=== PATIENT | male | born 1940 | race Asian ===

== ENCOUNTER → 2016-09-03 | Outpatient (CLI) | payer MEDICARE, OTHER ==
[~2016-09-03] MED LIST: ALLO100T PO; ATOR10TA84 PO; BACL10TA PO; DOCU250C91 PO; FENO48TA15 PO; FLUT1AER PO; FURO40 PO; INSLAN SQ; INSNOV SQ; ISOS1TAB2 PO; METO25 PO; RIVA15T PO; TAMS0.4C32 PO; TIOT185 IH; VITAD1000 PO; WARF3TAB29 PO
[2016-09-03 18:48] LABS: CALCIUM, TOTAL 8.8 mg/dL (8.8-10.5); CREATININE 1.96 mg/dL (0.60-1.30); POTASSIUM 4.1 mmol/L (3.5-5.1)
== END | disposition home or self-care (01) ==
LOC: LABPV 15:05
PROVIDERS: ATTEND Internal Medicine Nephrology
DX: I12.9 Hypertensive chronic kidney disease with stage 1 through stage 4 chronic kidney disease, or unspecified chronic kidney disease (principal); N18.3 Chronic kidney disease, stage 3 (moderate); E11.29 Type 2 diabetes mellitus with other diabetic kidney complication; I25.10 Atherosclerotic heart disease of native coronary artery without angina pectoris; D64.9 Anemia, unspecified; I50.9 Heart failure, unspecified; E78.5 Hyperlipidemia, unspecified; I42.8 Other cardiomyopathies
CPT/HCPCS: 84156

== ENCOUNTER → 2016-09-07 | Outpatient (CLI) | payer MEDICARE, OTHER | END | disposition home or self-care (01) | LOC: RADPV 13:12 | PROVIDERS: ATTEND Podiatrist Foot & Ankle Surgery | DX: I73.9 Peripheral vascular disease, unspecified (principal); L97.412 Non-pressure chronic ulcer of right heel and midfoot with fat layer exposed; I70.201 Unspecified atherosclerosis of native arteries of extremities, right leg | CPT/HCPCS: 93925 ==

== ENCOUNTER → 2016-12-12 | Outpatient (CLI) | payer MEDICARE, OTHER ==
[2016-12-12 10:49] LABS: BASOPHILS # (AUTO) 0.04 K/uL (0.00-0.20); BASOPHILS % (AUTO) 0.6 % (0.0-2.0); EOSINOPHILS # (AUTO) 0.57 K/uL (0.00-0.70); EOSINOPHILS % (AUTO) 7.48 % (1.0-6.0); HEMATOCRIT 40.8 % (41-53); HEMOGLOBIN 13.4 g/dL (13.5-17.5); LYMPHOCYTES # (AUTO) 1.4 K/uL (1.0-4.8); LYMPHOCYTES % (AUTO) 18.2 % (22.0-44.0); MEAN CORPUSCULAR HGB CONC 32.7 G/dL (31.0-37.0); MEAN CORPUSCULAR VOLUME 98 fL (80-100); MONOCYTES # (AUTO) 0.6 K/uL (0.1-1.0); MONOCYTES % (AUTO) 7.8 % (2.0-9.0); NEUTROPHILS # (AUTO) 5.1 K/uL (1.8-7.7); NEUTROPHILS % (AUTO) 65.9 % (40.0-70.0); PLATELET COUNT (AUTO) 181 K/uL (150-450); RED BLOOD CELL COUNT(AUTO) 4.17 MIL/uL (4.50-5.90); RED CELL DISTRIBUTION WIDTH 15.4 % (11.5-14.5); WHITE BLOOD COUNT (AUTO) 7.7 K/uL (4.5-11.0)
[2016-12-12 11:08] LABS: ALBUMIN 3.3 g/dL (3.4-5.0); BILIRUBIN,TOTAL 0.4 mg/dL (0.1-1.0); CALCIUM, TOTAL 8.7 mg/dL (8.8-10.5); CHOL/HDL RATIO 2.8 (4.2-7.3); CREATININE 1.91 mg/dL (0.60-1.30); HEMOGLOBIN A1C 7.9 % (4.5-6.2); PHOSPHORUS 4.5 mg/dL (2.5-4.9); POTASSIUM 3.7 mmol/L (3.5-5.1); TOTAL PROTEIN, SERUM 7.4 g/dL (6.4-8.2)
[2016-12-12 11:09] LABS: THYROID STIMULATING HORMONE 4.04 uIU/mL (0.36-3.74)
== END | disposition home or self-care (01) ==
LOC: LABPV 07:26
PROVIDERS: ATTEND Internal Medicine Cardiovascular Disease
DX: I11.0 Hypertensive heart disease with heart failure (principal); I50.9 Heart failure, unspecified; E11.8 Type 2 diabetes mellitus with unspecified complications; E55.9 Vitamin D deficiency, unspecified
CPT/HCPCS: 82306; 82570; 83036; 83735; 83970; 84100; 84156; 84439; 84443

== ENCOUNTER → 2017-02-14 | Outpatient (CLI) | payer MEDICARE, OTHER ==
[~2017-02-14] MED LIST changes: +AMIO200T2 PO; +AZIT500T PO; +METO-325 PO; -METO25 PO; +POTA-9 PO; -WARF3TAB29 PO
[2017-02-14 12:01] LABS: BASOPHILS % (AUTO) 0.4 % (0.0-2.0); EOSINOPHILS % (AUTO) 3.5 % (1.0-6.0); HEMATOCRIT 37.2 % (41-53); HEMOGLOBIN 12.6 g/dL (13.5-17.5); LYMPHOCYTES # (AUTO) 1.1 K/uL (1.0-4.8); LYMPHOCYTES % (AUTO) 14.7 % (22.0-44.0); MEAN CORPUSCULAR HEMOGLOBIN 33.3 pg (26.0-34.0); MEAN CORPUSCULAR HGB CONC 33.8 G/dL (31.0-37.0); MEAN CORPUSCULAR VOLUME 99 fL (80-100); MONOCYTES # (AUTO) 0.5 K/uL (0.1-1.0); MONOCYTES % (AUTO) 7.1 % (2.0-9.0); NEUTROPHILS # (AUTO) 5.5 K/uL (1.8-7.7); NEUTROPHILS % (AUTO) 74.3 % (40.0-70.0); PLATELET COUNT (AUTO) 272 K/uL (150-450); RED BLOOD CELL COUNT(AUTO) 3.77 MIL/uL (4.50-5.90); RED CELL DISTRIBUTION WIDTH 15.6 % (11.5-14.5); WHITE BLOOD COUNT (AUTO) 7.4 K/uL (4.5-11.0)
[2017-02-14 12:06] LABS: HEMOGLOBIN A1C 7.7 % (4.5-6.2)
[2017-02-14 12:39] LABS: ALBUMIN 2.5 g/dL (3.4-5.0); BILIRUBIN,TOTAL 0.3 mg/dL (0.1-1.0); CALCIUM, TOTAL 8.4 mg/dL (8.8-10.5); CHOL/HDL RATIO 2.7 (4.2-7.3); CREATININE 2.26 mg/dL (0.60-1.30); MAGNESIUM 2.1 mg/dL (1.80-2.40); POTASSIUM 4.6 mmol/L (3.5-5.1); THYROID STIMULATING HORMONE 5.01 uIU/mL (0.36-3.74); TOTAL PROTEIN, SERUM 6.6 g/dL (6.4-8.2)
== END | disposition home or self-care (01) ==
LOC: LABPV 10:09
PROVIDERS: ATTEND Internal Medicine Cardiovascular Disease
DX: I11.0 Hypertensive heart disease with heart failure (principal); I50.9 Heart failure, unspecified; E11.8 Type 2 diabetes mellitus with unspecified complications; E55.9 Vitamin D deficiency, unspecified
CPT/HCPCS: 82306; 83036; 83735; 84439; 84443

== ENCOUNTER → 2017-03-19 | Outpatient (CLI) | payer MEDICARE, OTHER ==
[~2017-03-19] MED LIST changes: +CARV12 PO; +CILO100T PO; +CLOP75 PO; +GABA-529 PO; -METO-325 PO; +METO-558 PO; +VALS80TA2 PO
[2017-03-19 10:47] LABS: BASOPHILS % (AUTO) 0.5 % (0.0-2.0); EOSINOPHILS % (AUTO) 3.7 % (1.0-6.0); HEMATOCRIT 40.7 % (41-53); HEMOGLOBIN 13.8 g/dL (13.5-17.5); LYMPHOCYTES # (AUTO) 1.1 K/uL (1.0-4.8); MEAN CORPUSCULAR HEMOGLOBIN 33.4 pg (26.0-34.0); MEAN CORPUSCULAR HGB CONC 33.8 G/dL (31.0-37.0); MEAN CORPUSCULAR VOLUME 99 fL (80-100); MONOCYTES # (AUTO) 0.5 K/uL (0.1-1.0); MONOCYTES % (AUTO) 7.6 % (2.0-9.0); NEUTROPHILS # (AUTO) 4.9 K/uL (1.8-7.7); NEUTROPHILS % (AUTO) 72.2 % (40.0-70.0); PLATELET COUNT (AUTO) 148 K/uL (150-450); RED BLOOD CELL COUNT(AUTO) 4.11 MIL/uL (4.50-5.90); RED CELL DISTRIBUTION WIDTH 15.8 % (11.5-14.5); WHITE BLOOD COUNT (AUTO) 6.7 K/uL (4.5-11.0)
[2017-03-19 11:17] LABS: ALBUMIN 3.8 g/dL (3.4-5.0); BILIRUBIN,TOTAL 0.6 mg/dL (0.1-1.0); CALCIUM, TOTAL 9.2 mg/dL (8.8-10.5); CHOL/HDL RATIO 2.5 (4.2-7.3); CREATININE 2.26 mg/dL (0.60-1.30); MAGNESIUM 2.3 mg/dL (1.80-2.40); POTASSIUM 4.4 mmol/L (3.5-5.1); THYROID STIMULATING HORMONE 10.59 uIU/mL (0.36-3.74); TOTAL PROTEIN, SERUM 7.6 g/dL (6.4-8.2)
[2017-03-19 11:31] LABS: HEMOGLOBIN A1C 8.8 % (4.5-6.2)
== END | disposition home or self-care (01) ==
LOC: LABPV 08:01
PROVIDERS: ATTEND Internal Medicine Cardiovascular Disease
DX: I11.0 Hypertensive heart disease with heart failure (principal); I50.9 Heart failure, unspecified; E11.8 Type 2 diabetes mellitus with unspecified complications; E55.9 Vitamin D deficiency, unspecified
CPT/HCPCS: 82306; 82570; 83036; 83735; 84156; 84439; 84443

== ENCOUNTER → 2017-04-17 | Outpatient (CLI) | payer MEDICARE, OTHER ==
[2017-04-17 10:39] LABS: CALCIUM, TOTAL 8.8 mg/dL (8.8-10.5); POTASSIUM 4.8 mmol/L (3.5-5.1)
== END | disposition home or self-care (01) ==
LOC: LABPV 07:59
PROVIDERS: ATTEND Internal Medicine Cardiovascular Disease
DX: I11.0 Hypertensive heart disease with heart failure (principal); I50.9 Heart failure, unspecified; E11.65 Type 2 diabetes mellitus with hyperglycemia; E55.9 Vitamin D deficiency, unspecified

== ENCOUNTER → 2017-05-14 | Outpatient (CLI) | payer MEDICARE, OTHER ==
[2017-05-14 14:47] LABS: CALCIUM, TOTAL 8.9 mg/dL (8.8-10.5); CREATININE 2.04 mg/dL (0.60-1.30); POTASSIUM 4.1 mmol/L (3.5-5.1); THYROID STIMULATING HORMONE 6.03 uIU/mL (0.36-3.74)
== END | disposition home or self-care (01) ==
LOC: LABPV 12:53
PROVIDERS: ATTEND Internal Medicine Nephrology
DX: I13.0 Hypertensive heart and chronic kidney disease with heart failure and stage 1 through stage 4 chronic kidney disease, or unspecified chronic kidney disease (principal); E11.22 Type 2 diabetes mellitus with diabetic chronic kidney disease; N18.9 Chronic kidney disease, unspecified; I50.9 Heart failure, unspecified; E11.29 Type 2 diabetes mellitus with other diabetic kidney complication; E55.9 Vitamin D deficiency, unspecified
CPT/HCPCS: 84443; 84480

== ENCOUNTER 2017-05-30 03:35 | Inpatient (IN) | payer MEDICARE, OTHER ==
[~2017-05-30] VITALS: Ht 167.6 cm; Wt 87.6 kg
[~2017-05-30 03:35] MED LIST changes: -CARV12 PO; -CILO100T PO; -CLOP75 PO; -GABA-529 PO; -VALS80TA2 PO
[2017-05-30] MEDS ORDERED: CARV12 PO (03:45)
[2017-05-30] MEDS ORDERED: VALS80TA2 PO (03:45)
[2017-05-30] MEDS ORDERED: GABA-529 PO (03:45)
[2017-05-30] MEDS ORDERED: CILO100T PO (03:45)
[2017-05-30] MEDS ORDERED: CLOP75 PO (03:45)
[2017-05-30] MEDS ORDERED: IPRATROPIUM BROMIDE 0.5 MG/2.5 ML NEB SOLUTION NEB ONE ×2 (03:45→05:00)
[2017-05-30] MEDS ORDERED: ALBUTEROL SULFATE 5 MG/ML 20 ML NEB SOLN [BULK] NEB ONE ×2 (03:45→05:00)
[2017-05-30] MEDS ORDERED: MethylPREDNISolone SOD SUCC 125 MG/2 ML VIAL IVP ONE ×2 (03:45→05:00)
[2017-05-30] MEDS ORDERED: 0.9% SODIUM CHLORIDE 5 ML NEB SOLUTION NEB ONE ×2 (03:46→04:56)
[2017-05-30 03:57] LABS: GLUCOSE,POINT OF CARE 118 MG/DL (70-110)
[2017-05-30 04:20] LABS: BASOPHILS % (AUTO) 0.1 % (0.0-2.0); EOSINOPHILS % (AUTO) 1.7 % (1.0-6.0); HEMATOCRIT 37.8 % (41-53); HEMOGLOBIN 12.9 g/dL (13.5-17.5); LYMPHOCYTES # (AUTO) 1.2 K/uL (1.0-4.8); LYMPHOCYTES % (AUTO) 11.4 % (22.0-44.0); MEAN CORPUSCULAR HEMOGLOBIN 34.1 pg (26.0-34.0); MEAN CORPUSCULAR HGB CONC 34.1 G/dL (31.0-37.0); MEAN CORPUSCULAR VOLUME 100 fL (80-100); MONOCYTES # (AUTO) 0.6 K/uL (0.1-1.0); MONOCYTES % (AUTO) 5.4 % (2.0-9.0); NEUTROPHILS # (AUTO) 8.6 K/uL (1.8-7.7); NEUTROPHILS % (AUTO) 81.4 % (40.0-70.0); PLATELET COUNT (AUTO) 178 K/uL (150-450); RED BLOOD CELL COUNT(AUTO) 3.78 MIL/uL (4.50-5.90); RED CELL DISTRIBUTION WIDTH 15.3 % (11.5-14.5); WHITE BLOOD COUNT (AUTO) 10.5 K/uL (4.5-11.0)
[2017-05-30 04:27] LABS: CALCIUM, TOTAL 8.6 mg/dL (8.8-10.5); CREATININE 2.15 mg/dL (0.60-1.30); POTASSIUM 4.2 mmol/L (3.5-5.1)
[2017-05-30 04:32] LABS: ALBUMIN 3.2 g/dL (3.4-5.0); BILIRUBIN,TOTAL 0.5 mg/dL (0.1-1.0); TOTAL PROTEIN, SERUM 7.3 g/dL (6.4-8.2)
[2017-05-30 04:58] LABS: GLUCOSE,POINT OF CARE 111 MG/DL (70-110)
[2017-05-30] MEDS ORDERED: ACETAMINOPHEN 325 MG TABLET PO PRN ×2 (05:45→09:00)
[2017-05-30] MEDS ORDERED: 0.9% SODIUM CHLORIDE 10 ML SYRINGE IVP PRN ×2 (05:45→09:00)
[2017-05-30] MEDS ORDERED: CefTRIAXone 1 GM/DEXTROSE 50 ML IV ONE (05:45)
[2017-05-30] MEDS ORDERED: ONDANSETRON HCL 4 MG/2 ML VIAL IVP PRN ×2 (05:45→09:00)
[2017-05-30 05:57] LABS: GLUCOSE COMMENT 1 Doctor Notified; GLUCOSE,POINT OF CARE 135 MG/DL (70-110)
[2017-05-30 06:26] LABS: INFLUENZA TYPE B NEGATIVE FOR TYPE B (NEGATIVE)
[2017-05-30 07:27] LABS: GLUCOSE COMMENT 1 Doctor Notified; GLUCOSE,POINT OF CARE 144 MG/DL (70-110)
[2017-05-30 08:34] VITALS: BP 119/68
[2017-05-30] MEDS ORDERED: INSULIN ASPART 100 UNITS/ML SQ SCH ×2 (09:00→12:00)
[2017-05-30] MEDS ORDERED: BISACODYL 10 MG RECTAL RECTAL SUPPOSITORY PR PRN (09:00)
[2017-05-30] MEDS ORDERED: IPRATROPIUM BROMIDE 0.5 MG/2.5 ML NEB SOLUTION NEB PRN (09:00)
[2017-05-30] MEDS ORDERED: ZOLPIDEM TARTRATE 5 MG TABLET PO PRN (09:00)
[2017-05-30] MEDS ORDERED: HYDROCODONE/ACETAMINOPHEN 5-325 MG TABLET PO PRN (09:00)
[2017-05-30] MEDS ORDERED: AMIODARONE HCL 200 MG TABLET PO SCH (09:00)
[2017-05-30] MEDS ORDERED: DOCUSATE SODIUM 250 MG CAPSULE PO SCH (09:00)
[2017-05-30] MEDS ORDERED: ALBUTEROL SULFATE 2.5 MG/0.5 ML NEB SOLUTION NEB PRN (09:00)
[2017-05-30] MEDS ORDERED: *CLINICAL-RX DOSING [ENTER DRUG IN COMMENTS] CLINICAL ONE (09:30)
[2017-05-30] MEDS ORDERED: BACLOFEN 10 MG TABLET PO SCH (10:00)
[2017-05-30] MEDS ORDERED: INSULIN GLARGINE,HUM.REC.ANLOG 100 UNITS/ML SQ SCH ×2 (10:00→21:00)
[2017-05-30] MEDS ORDERED: FUROSEMIDE 40 MG TABLET PO SCH (10:00)
[2017-05-30] MEDS ORDERED: DEXTROSE 50%-WATER 25 GM/50 ML SYRINGE IVP PRN (10:30)
[2017-05-30] MEDS: DOCUSATE SODIUM 250 MG CAPSULE PO SCH ×2 (10:33→20:28)
[2017-05-30] MEDS: CHOLECALCIFEROL (VIT D3) 1,000 UNITS TABLET PO SCH (10:33)
[2017-05-30] MEDS: CARVEDILOL 12.5 MG TABLET PO SCH ×2 (10:34→20:28)
[2017-05-30] MEDS: PANTOPRAZOLE SODIUM 40 MG DR TABLET PO SCH (10:34)
[2017-05-30] MEDS: GABAPENTIN 100 MG CAPSULE PO SCH ×2 (10:35→20:28)
[2017-05-30] MEDS: POTASSIUM CHLORIDE 10 MEQ ER TABLET PO SCH (10:36)
[2017-05-30] MEDS: TIOTROPIUM BROMIDE 18 MCG/INH HANDIHALER [5] IH SCH (10:36)
[2017-05-30] MEDS: ALLOPURINOL 100 MG TABLET PO SCH (10:36)
[2017-05-30] MEDS: VALSARTAN 80 MG TABLET PO SCH ×2 (10:36→21:32)
[2017-05-30] MEDS: FLUTICASONE/VILANTEROL 100-25 MCG/INH INHALER [14] IH SCH (10:37)
[2017-05-30] MEDS: INSULIN ASPART 100 UNITS/ML SQ PRN ×2 (11:33→21:33)
[2017-05-30 11:44] VITALS: BP 149/75
[2017-05-30] MEDS ORDERED: INSNOV SQ (13:44)
[2017-05-30 15:37] VITALS: BP 127/70
[2017-05-30] MEDS ORDERED: BACLOFEN 10 MG TABLET PO PRN (17:00)
[2017-05-30] MEDS: MethylPREDNISolone SOD SUCC 125 MG/2 ML VIAL IVP SCH ×2 (17:08→23:45)
[2017-05-30] MEDS: CILOSTAZOL 100 MG TABLET PO SCH (17:10)
[2017-05-30] MEDS: INSULIN ASPART 100 UNITS/ML SQ SCH (17:11)
[2017-05-30] MEDS ORDERED: RIVAROXABAN 15 MG TABLET PO SCH (18:00)
[2017-05-30 19:32] VITALS: BP 117/64
[2017-05-30] MEDS: FUROSEMIDE 40 MG TABLET PO SCH (20:28)
[2017-05-30] MEDS ORDERED: TAMSULOSIN HCL 0.4 MG CAPSULE PO SCH (21:00)
[2017-05-30] MEDS ORDERED: ATORVASTATIN CALCIUM 20 MG TABLET PO SCH (21:00)
[2017-05-31 00:15] VITALS: BP 133/83
[2017-05-31 05:00] VITALS: BP 140/78
[2017-05-31 05:28] LABS: GLUCOSE COMMENT 1 Received Meds; GLUCOSE,POINT OF CARE 245 MG/DL (70-110)
[2017-05-31] MEDS: PANTOPRAZOLE SODIUM 40 MG DR TABLET PO SCH (06:48)
[2017-05-31] MEDS: CILOSTAZOL 100 MG TABLET PO SCH (06:48)
[2017-05-31] MEDS: INSULIN ASPART 100 UNITS/ML SQ SCH ×2 (06:49→12:31)
[2017-05-31] MEDS: INSULIN ASPART 100 UNITS/ML SQ PRN (06:50)
[2017-05-31 07:41] VITALS: BP 140/79
[2017-05-31] MEDS: MethylPREDNISolone SOD SUCC 125 MG/2 ML VIAL IVP SCH (08:27)
[2017-05-31] MEDS: CARVEDILOL 12.5 MG TABLET PO SCH (08:28)
[2017-05-31] MEDS: CHOLECALCIFEROL (VIT D3) 1,000 UNITS TABLET PO SCH (08:28)
[2017-05-31] MEDS: FUROSEMIDE 40 MG TABLET PO SCH (08:28)
[2017-05-31] MEDS: DOCUSATE SODIUM 250 MG CAPSULE PO SCH (08:28)
[2017-05-31] MEDS: TIOTROPIUM BROMIDE 18 MCG/INH HANDIHALER [5] IH SCH (08:29)
[2017-05-31] MEDS: FLUTICASONE/VILANTEROL 100-25 MCG/INH INHALER [14] IH SCH (08:30)
[2017-05-31] MEDS: GABAPENTIN 100 MG CAPSULE PO SCH (08:33)
[2017-05-31] MEDS: POTASSIUM CHLORIDE 10 MEQ ER TABLET PO SCH (08:33)
[2017-05-31] MEDS: ALLOPURINOL 100 MG TABLET PO SCH (08:34)
[2017-05-31] MEDS: VALSARTAN 80 MG TABLET PO SCH (08:35)
[2017-05-31] MEDS ORDERED: CefTRIAXone 1 GM/DEXTROSE 50 ML IV SCH (09:00)
[2017-05-31] MEDS ORDERED: TERBINAFINE HCL 1% 30 GM CREAM TP SCH (09:00)
[2017-05-31] MEDS ORDERED: GENTIAN VIOLET TP SCH (09:00)
[2017-05-31] MEDS ORDERED: AMIODARONE HCL 200 MG TABLET PO SCH (09:00)
[2017-05-31 09:10] LABS: EOSINOPHILS % (AUTO) 0 % (1.0-6.0); HEMATOCRIT 35.3 % (41-53); HEMOGLOBIN 12.3 g/dL (13.5-17.5); LYMPHOCYTES # (AUTO) 0.6 K/uL (1.0-4.8); LYMPHOCYTES % (AUTO) 4.7 % (22.0-44.0); MEAN CORPUSCULAR HEMOGLOBIN 34.4 pg (26.0-34.0); MEAN CORPUSCULAR HGB CONC 34.9 G/dL (31.0-37.0); MEAN CORPUSCULAR VOLUME 99 fL (80-100); MONOCYTES # (AUTO) 0.4 K/uL (0.1-1.0); MONOCYTES % (AUTO) 3.6 % (2.0-9.0); NEUTROPHILS # (AUTO) 10.9 K/uL (1.8-7.7); PLATELET COUNT (AUTO) 197 K/uL (150-450); RED BLOOD CELL COUNT(AUTO) 3.57 MIL/uL (4.50-5.90); WHITE BLOOD COUNT (AUTO) 11.8 K/uL (4.5-11.0)
[2017-05-31 09:11] LABS: NEUTROPHILS % (AUTO) 91.7 % (40.0-70.0)
[2017-05-31 09:22] LABS: INR 1.2 (0.9-1.1); PROTHROMBIN TIME 12.8 SEC (9.4-11.6)
[2017-05-31 09:39] LABS: CHOL/HDL RATIO 2.6 (4.2-7.3); THYROID STIMULATING HORMONE 3.87 uIU/mL (0.36-3.74)
[2017-05-31 09:40] LABS: HEMOGLOBIN A1C 7.8 % (4.5-6.2)
[2017-05-31 11:52] VITALS: BP 131/58
[2017-05-31 11:59] LABS: GLUCOSE,POINT OF CARE 285 MG/DL (70-110)
[2017-05-31 11:59] LABS: GLUCOSE COMMENT 1 Received Meds; GLUCOSE,POINT OF CARE 232 MG/DL (70-110)
[2017-05-31 12:27] LABS: GLUCOSE COMMENT 1 Received Meds; GLUCOSE,POINT OF CARE 263 MG/DL (70-110)
[2017-05-31 19:47] LABS: GLUCOSE,POINT OF CARE 214 MG/DL (70-110)
[2017-06-01] MEDS ORDERED: GENTIAN VIOLET TP SCH (09:00)
== END 2017-05-31 13:05 | disposition home or self-care (01) | DRG 292 ==
LOC: EMS 03:38 → 5S 05:38
PROVIDERS: ADMIT Internal Medicine; ATTEND Internal Medicine
DX: I13.0 Hypertensive heart and chronic kidney disease with heart failure and stage 1 through stage 4 chronic kidney disease, or unspecified chronic kidney disease (principal); L03.115 Cellulitis of right lower limb; N18.4 Chronic kidney disease, stage 4 (severe); E11.22 Type 2 diabetes mellitus with diabetic chronic kidney disease; E11.51 Type 2 diabetes mellitus with diabetic peripheral angiopathy without gangrene; E11.649 Type 2 diabetes mellitus with hypoglycemia without coma; I42.9 Cardiomyopathy, unspecified; I48.2 Chronic atrial fibrillation; B35.3 Tinea pedis; I50.42 Chronic combined systolic (congestive) and diastolic (congestive) heart failure; J47.9 Bronchiectasis, uncomplicated; Z95.810 Presence of automatic (implantable) cardiac defibrillator; E78.5 Hyperlipidemia, unspecified; Z79.4 Long term (current) use of insulin; Z22.322 Carrier or suspected carrier of Methicillin resistant Staphylococcus aureus
CPT/HCPCS: 71250; 73700; 82962; 83036; 84145; 84443; 87081; 87804; 93005; 93970; 94640; 94644; 96365; 96366; 96375; 96376; 99285; J0696; J1815; J2930

== ENCOUNTER 2017-07-25 22:44 | Inpatient (IN) | payer MEDICARE, OTHER ==
[~2017-07-25] VITALS: Ht 167.6 cm; Wt 84.8 kg
[~2017-07-25 22:44] MED LIST changes: -AZIT500T PO; +CILO100T PO; +CLOP75 PO; -FENO48TA15 PO; +GABA-529 PO; +SULF1TAB42 PO; +VALS80TA2 PO
[2017-07-25 23:12] LABS: BASOPHILS % (AUTO) 0.5 % (0.0-2.0); HEMATOCRIT 30.6 % (41-53); HEMOGLOBIN 10.4 g/dL (13.5-17.5); LYMPHOCYTES # (AUTO) 0.6 K/uL (1.0-4.8); LYMPHOCYTES % (AUTO) 5.2 % (22.0-44.0); MEAN CORPUSCULAR HEMOGLOBIN 33.6 pg (26.0-34.0); MEAN CORPUSCULAR HGB CONC 33.9 G/dL (31.0-37.0); MEAN CORPUSCULAR VOLUME 99 fL (80-100); MONOCYTES # (AUTO) 0.8 K/uL (0.1-1.0); MONOCYTES % (AUTO) 7.6 % (2.0-9.0); NEUTROPHILS # (AUTO) 9.1 K/uL (1.8-7.7); PLATELET COUNT (AUTO) 205 K/uL (150-450); RED BLOOD CELL COUNT(AUTO) 3.09 MIL/uL (4.50-5.90); RED CELL DISTRIBUTION WIDTH 14.6 % (11.5-14.5)
[2017-07-25 23:13] LABS: NEUTROPHILS % (AUTO) 85.7 % (40.0-70.0)
[2017-07-25] MEDS ORDERED: ALBUTEROL SULFATE 5 MG/ML 20 ML NEB SOLN [BULK] NEB ONE (23:15)
[2017-07-25] MEDS ORDERED: IPRATROPIUM BROMIDE 0.5 MG/2.5 ML NEB SOLUTION NEB ONE (23:15)
[2017-07-25] MEDS ORDERED: 0.9% SODIUM CHLORIDE 5 ML NEB SOLUTION NEB ONE (23:16)
[2017-07-25 23:22] LABS: CALCIUM, TOTAL 8.5 mg/dL (8.8-10.5); CREATININE 1.86 mg/dL (0.60-1.30); POTASSIUM 4.9 mmol/L (3.5-5.1)
[2017-07-25 23:48] LABS: ALBUMIN 2.8 g/dL (3.4-5.0); BILIRUBIN,TOTAL 0.2 mg/dL (0.1-1.0); CKMB RELATIVE INDEX 3.9 % (0.0-4.0); CREATINE KINASE MB 5.7 ng/mL (0-5); TOTAL PROTEIN, SERUM 6.4 g/dL (6.4-8.2)
[2017-07-26] MEDS ORDERED: DEXTROSE 50%-WATER 25 GM/50 ML SYRINGE IVP ONE
[2017-07-26] MEDS ORDERED: DEXTROSE 10%-WATER 1,000 ML IV ONE
[2017-07-26 00:07] LABS: GLUCOSE,POINT OF CARE 56 MG/DL (70-110)
[2017-07-26 01:18] LABS: GLUCOSE,POINT OF CARE 206 MG/DL (70-110)
[2017-07-26 02:22] LABS: GLUCOSE,POINT OF CARE 217 MG/DL (70-110)
[2017-07-26] MEDS ORDERED: 0.9% SODIUM CHLORIDE 10 ML SYRINGE IVP PRN (02:30)
[2017-07-26] MEDS ORDERED: ACETAMINOPHEN 325 MG TABLET PO PRN (02:30)
[2017-07-26] MEDS ORDERED: ONDANSETRON HCL 4 MG/2 ML VIAL IVP PRN ×2 (02:30→19:00)
[2017-07-26 04:13] LABS: GLUCOSE,POINT OF CARE 306 MG/DL (70-110)
[2017-07-26 06:03] LABS: GLUCOSE,POINT OF CARE 352 MG/DL (70-110)
[2017-07-26] MEDS ORDERED: IPRATROPIUM BROMIDE 0.5 MG/2.5 ML NEB SOLUTION NEB PRN (08:30)
[2017-07-26] MEDS ORDERED: ALBUTEROL SULFATE 2.5 MG/0.5 ML NEB SOLUTION NEB PRN (08:30)
[2017-07-26 08:33] VITALS: BP 144/69
[2017-07-26 11:21] VITALS: BP 131/58
[2017-07-26 11:53] LABS: GLUCOMETER DEV NAME(LOC) 5N 1N; GLUCOSE,POINT OF CARE 367 MG/DL (70-110)
[2017-07-26] MEDS ORDERED: DEXTROSE 50%-WATER 25 GM/50 ML SYRINGE IVP PRN (12:15)
[2017-07-26] MEDS: INSULIN ASPART 100 UNITS/ML SQ PRN ×3 (12:21→22:27)
[2017-07-26] MEDS ORDERED: IPRATROPIUM BROMIDE 0.5 MG/2.5 ML NEB SOLUTION NEB SCH (14:00)
[2017-07-26] MEDS ORDERED: ALBUTEROL SULFATE 2.5 MG/0.5 ML NEB SOLUTION NEB SCH (14:00)
[2017-07-26 15:24] VITALS: BP 120/53
[2017-07-26] MEDS ORDERED: BACLOFEN 10 MG TABLET PO PRN (17:30)
[2017-07-26] MEDS ORDERED: VALS160T2 PO (17:46)
[2017-07-26] MEDS: RIVAROXABAN 15 MG TABLET PO SCH (18:20)
[2017-07-26] MEDS: CILOSTAZOL 100 MG TABLET PO SCH (18:20)
[2017-07-26 18:27] LABS: GLUCOMETER DEV NAME(LOC) 5S 1M; GLUCOSE,POINT OF CARE 278 MG/DL (70-110)
[2017-07-26] MEDS ORDERED: ZOLPIDEM TARTRATE 5 MG TABLET PO PRN (19:00)
[2017-07-26 20:12] LABS: GLUCOMETER DEV NAME(LOC) 5N 1N; GLUCOSE,POINT OF CARE 229 MG/DL (70-110)
[2017-07-26 20:17] VITALS: BP 114/76
[2017-07-26] MEDS ORDERED: DOCUSATE SODIUM 250 MG CAPSULE PO SCH (21:00)
[2017-07-26] MEDS: ALBUTEROL SULFATE 2.5 MG/0.5 ML NEB SOLUTION NEB SCH (21:13)
[2017-07-26] MEDS: IPRATROPIUM BROMIDE 0.5 MG/2.5 ML NEB SOLUTION NEB SCH (21:13)
[2017-07-26] MEDS: OXYGEN THERAPY IH SCH (21:13)
[2017-07-26 22:25] VITALS: BP 122/76
[2017-07-26] MEDS: VALSARTAN 160 MG TABLET PO SCH (22:28)
[2017-07-26] MEDS: ISOSORB DINIT/HYDRALAZINE HCL 20-37.5 MG TABLET PO SCH (22:28)
[2017-07-26] MEDS: TAMSULOSIN HCL 0.4 MG CAPSULE PO SCH (22:28)
[2017-07-26] MEDS: GABAPENTIN 100 MG CAPSULE PO SCH (22:28)
[2017-07-26] MEDS: DOCUSATE SODIUM 100 MG CAPSULE PO SCH (22:28)
[2017-07-26] MEDS: FUROSEMIDE 40 MG TABLET PO SCH (22:28)
[2017-07-26 22:32] LABS: GLUCOMETER DEV NAME(LOC) 5S 1M; GLUCOSE,POINT OF CARE 192 MG/DL (70-110)
[2017-07-26] MEDS: HYDROCODONE/ACETAMINOPHEN 5-325 MG TABLET PO PRN (23:47)
[2017-07-27 00:27] VITALS: BP 129/67
[2017-07-27] MEDS: ALBUTEROL SULFATE 2.5 MG/0.5 ML NEB SOLUTION NEB SCH ×4 (02:00→20:14)
[2017-07-27] MEDS: IPRATROPIUM BROMIDE 0.5 MG/2.5 ML NEB SOLUTION NEB SCH ×4 (02:00→20:14)
[2017-07-27] MEDS: ALBUTEROL SULFATE 2.5 MG/0.5 ML NEB SOLUTION NEB PRN (03:19)
[2017-07-27] MEDS: IPRATROPIUM BROMIDE 0.5 MG/2.5 ML NEB SOLUTION NEB PRN (03:19)
[2017-07-27 05:28] VITALS: BP 145/86
[2017-07-27] MEDS: CILOSTAZOL 100 MG TABLET PO SCH ×2 (06:18→17:54)
[2017-07-27] MEDS: HYDROCODONE/ACETAMINOPHEN 5-325 MG TABLET PO PRN ×2 (06:18→21:09)
[2017-07-27 06:50] LABS: BASOPHILS % (AUTO) 0.6 % (0.0-2.0); EOSINOPHILS % (AUTO) 2.4 % (1.0-6.0); HEMATOCRIT 30.2 % (41-53); HEMOGLOBIN 10.2 g/dL (13.5-17.5); LYMPHOCYTES # (AUTO) 0.9 K/uL (1.0-4.8); LYMPHOCYTES % (AUTO) 10.4 % (22.0-44.0); MEAN CORPUSCULAR HEMOGLOBIN 33.4 pg (26.0-34.0); MEAN CORPUSCULAR HGB CONC 33.9 G/dL (31.0-37.0); MEAN CORPUSCULAR VOLUME 98 fL (80-100); MONOCYTES # (AUTO) 0.9 K/uL (0.1-1.0); MONOCYTES % (AUTO) 10.1 % (2.0-9.0); NEUTROPHILS # (AUTO) 6.6 K/uL (1.8-7.7); NEUTROPHILS % (AUTO) 76.5 % (40.0-70.0); PLATELET COUNT (AUTO) 187 K/uL (150-450); RED BLOOD CELL COUNT(AUTO) 3.07 MIL/uL (4.50-5.90); RED CELL DISTRIBUTION WIDTH 14.8 % (11.5-14.5)
[2017-07-27 07:20] LABS: CALCIUM, TOTAL 8.8 mg/dL (8.8-10.5); CREATININE 1.47 mg/dL (0.60-1.30); MAGNESIUM 1.9 mg/dL (1.80-2.40); POTASSIUM 4.9 mmol/L (3.5-5.1)
[2017-07-27 07:49] VITALS: BP 132/88
[2017-07-27] MEDS: TIOTROPIUM BROMIDE 18 MCG/INH HANDIHALER [5] IH SCH (08:28)
[2017-07-27] MEDS: DOCUSATE SODIUM 100 MG CAPSULE PO SCH ×2 (08:29→21:08)
[2017-07-27] MEDS: PANTOPRAZOLE SODIUM 40 MG/VIAL IVP SCH (08:29)
[2017-07-27] MEDS: CHOLECALCIFEROL (VIT D3) 1,000 UNITS TABLET PO SCH (08:30)
[2017-07-27] MEDS: CLOPIDOGREL BISULFATE 75 MG TABLET PO SCH (08:30)
[2017-07-27] MEDS: ALLOPURINOL 100 MG TABLET PO SCH (08:30)
[2017-07-27] MEDS: AMIODARONE HCL 200 MG TABLET PO SCH (08:30)
[2017-07-27] MEDS: POTASSIUM CHLORIDE 10 MEQ ER TABLET PO SCH (08:30)
[2017-07-27] MEDS: ATORVASTATIN CALCIUM 10 MG TABLET PO SCH (08:30)
[2017-07-27] MEDS: FLUTICASONE/VILANTEROL 100-25 MCG/INH INHALER [14] IH SCH (08:31)
[2017-07-27] MEDS: ISOSORB DINIT/HYDRALAZINE HCL 20-37.5 MG TABLET PO SCH (08:31)
[2017-07-27] MEDS: FUROSEMIDE 40 MG TABLET PO SCH (08:32)
[2017-07-27] MEDS: GABAPENTIN 100 MG CAPSULE PO SCH ×2 (08:32→21:08)
[2017-07-27] MEDS: OXYGEN THERAPY IH SCH ×2 (08:37→20:13)
[2017-07-27] MEDS: VALSARTAN 160 MG TABLET PO SCH (10:05)
[2017-07-27] MEDS: METOPROLOL SUCCINATE 50 MG ER TABLET PO SCH (10:05)
[2017-07-27 12:07] VITALS: BP 99/68
[2017-07-27 12:33] LABS: GLUCOMETER DEV NAME(LOC) 5N 1N; GLUCOSE,POINT OF CARE 170 MG/DL (70-110)
[2017-07-27 12:33] LABS: GLUCOMETER DEV NAME(LOC) 5N 1N; GLUCOSE,POINT OF CARE 242 MG/DL (70-110)
[2017-07-27 16:54] VITALS: BP 138/81
[2017-07-27] MEDS: RIVAROXABAN 15 MG TABLET PO SCH (17:54)
[2017-07-27 19:59] VITALS: BP 108/65
[2017-07-27] MEDS: TAMSULOSIN HCL 0.4 MG CAPSULE PO SCH (21:08)
[2017-07-27] MEDS: BUMETANIDE 0.25 MG/ML 4 ML VIAL IVP SCH (21:08)
[2017-07-28 00:03] VITALS: BP 122/64
[2017-07-28] MEDS: VALSARTAN 160 MG TABLET PO SCH ×3 (01:11→21:00)
[2017-07-28] MEDS: ISOSORB DINIT/HYDRALAZINE HCL 20-37.5 MG TABLET PO SCH ×2 (01:11→09:00)
[2017-07-28 01:12] LABS: GLUCOMETER DEV NAME(LOC) 5S 1M; GLUCOSE,POINT OF CARE 241 MG/DL (70-110)
[2017-07-28] MEDS: HYDROCODONE/ACETAMINOPHEN 5-325 MG TABLET PO PRN ×5 (01:12→20:31)
[2017-07-28 01:13] LABS: GLUCOMETER DEV NAME(LOC) 5S 1M; GLUCOSE,POINT OF CARE 246 MG/DL (70-110)
[2017-07-28] MEDS: ALBUTEROL SULFATE 2.5 MG/0.5 ML NEB SOLUTION NEB SCH ×4 (01:55→20:39)
[2017-07-28] MEDS: IPRATROPIUM BROMIDE 0.5 MG/2.5 ML NEB SOLUTION NEB SCH ×4 (01:55→20:38)
[2017-07-28] MEDS: CILOSTAZOL 100 MG TABLET PO SCH ×2 (06:18→17:47)
[2017-07-28 06:21] VITALS: BP 132/78
[2017-07-28 07:22] LABS: BASOPHILS % (AUTO) 0.3 % (0.0-2.0); EOSINOPHILS % (AUTO) 2.4 % (1.0-6.0); HEMATOCRIT 29.4 % (41-53); HEMOGLOBIN 10.1 g/dL (13.5-17.5); LYMPHOCYTES % (AUTO) 10.8 % (22.0-44.0); MEAN CORPUSCULAR HGB CONC 34.3 G/dL (31.0-37.0); MEAN CORPUSCULAR VOLUME 99 fL (80-100); MONOCYTES % (AUTO) 10.8 % (2.0-9.0); NEUTROPHILS # (AUTO) 6.7 K/uL (1.8-7.7); NEUTROPHILS % (AUTO) 75.7 % (40.0-70.0); PLATELET COUNT (AUTO) 184 K/uL (150-450); RED BLOOD CELL COUNT(AUTO) 2.96 MIL/uL (4.50-5.90); RED CELL DISTRIBUTION WIDTH 14.6 % (11.5-14.5)
[2017-07-28 07:42] VITALS: BP 108/63
[2017-07-28 07:49] LABS: C-REACTIVE PROTEIN QUANT 2.85 mg/dL (0.00-0.30); CALCIUM, TOTAL 8.6 mg/dL (8.8-10.5); CREATININE 1.7 mg/dL (0.60-1.30); MAGNESIUM 1.7 mg/dL (1.80-2.40)
[2017-07-28] MEDS: OXYGEN THERAPY IH SCH ×2 (08:15→20:29)
[2017-07-28] MEDS: PANTOPRAZOLE SODIUM 40 MG/VIAL IVP SCH (08:16)
[2017-07-28] MEDS: TIOTROPIUM BROMIDE 18 MCG/INH HANDIHALER [5] IH SCH (08:16)
[2017-07-28] MEDS: CHOLECALCIFEROL (VIT D3) 1,000 UNITS TABLET PO SCH (08:17)
[2017-07-28] MEDS: ATORVASTATIN CALCIUM 10 MG TABLET PO SCH (08:17)
[2017-07-28] MEDS: AMIODARONE HCL 200 MG TABLET PO SCH (08:17)
[2017-07-28] MEDS: CLOPIDOGREL BISULFATE 75 MG TABLET PO SCH (08:17)
[2017-07-28] MEDS: ALLOPURINOL 100 MG TABLET PO SCH (08:18)
[2017-07-28] MEDS: GABAPENTIN 100 MG CAPSULE PO SCH ×2 (08:18→20:30)
[2017-07-28] MEDS: FLUTICASONE/VILANTEROL 100-25 MCG/INH INHALER [14] IH SCH (08:18)
[2017-07-28] MEDS: POTASSIUM CHLORIDE 10 MEQ ER TABLET PO SCH (08:18)
[2017-07-28] MEDS: DOCUSATE SODIUM 100 MG CAPSULE PO SCH ×2 (08:21→20:30)
[2017-07-28 08:59] LABS: ERYTHROCYTE SEDIMENTATION RATE 77 MM/HR (0-15)
[2017-07-28] MEDS: METOPROLOL SUCCINATE 50 MG ER TABLET PO SCH (09:00)
[2017-07-28] MEDS: BUMETANIDE 0.25 MG/ML 4 ML VIAL IVP SCH (09:09)
[2017-07-28 11:33] VITALS: BP 115/80
[2017-07-28 12:59] LABS: CREATININE,URINE 32.3 mg/dL (30.0-125.0)
[2017-07-28 13:01] LABS: CREATININE,SERUM FOR CRCL 1.7 mg/dL (0.60-1.30)
[2017-07-28 13:19] LABS: GLUCOMETER DEV NAME(LOC) 5S 1M; GLUCOSE,POINT OF CARE 229 MG/DL (70-110)
[2017-07-28 16:20] VITALS: BP 112/77
[2017-07-28] MEDS: RIVAROXABAN 15 MG TABLET PO SCH (17:42)
[2017-07-28] MEDS: INSULIN ASPART 100 UNITS/ML SQ PRN (17:46)
[2017-07-28 20:02] LABS: GLUCOMETER DEV NAME(LOC) 5S 1M; GLUCOSE,POINT OF CARE 237 MG/DL (70-110)
[2017-07-28 20:15] VITALS: BP 113/62
[2017-07-28] MEDS: TAMSULOSIN HCL 0.4 MG CAPSULE PO SCH (20:30)
[2017-07-28] MEDS ORDERED: VANCOMYCIN HCL 1.5 GM in DEXTROSE 5%-WATER 250 ML IV ONE (22:00)
[2017-07-28] MEDS ORDERED: SODIUM CHLORIDE 0.9% 250 ML IV ONE (23:00)
[2017-07-28 23:03] LABS: GLUCOMETER DEV NAME(LOC) 5S 1M; GLUCOSE,POINT OF CARE 169 MG/DL (70-110)
[2017-07-29 00:16] VITALS: BP 113/63
[2017-07-29] MEDS: ISOSORB DINIT/HYDRALAZINE HCL 20-37.5 MG TABLET PO SCH ×3 (00:35→20:42)
[2017-07-29] MEDS: ALBUTEROL SULFATE 2.5 MG/0.5 ML NEB SOLUTION NEB SCH ×4 (02:11→21:13)
[2017-07-29] MEDS: IPRATROPIUM BROMIDE 0.5 MG/2.5 ML NEB SOLUTION NEB SCH ×4 (02:12→21:13)
[2017-07-29 04:45] VITALS: BP 100/61
[2017-07-29] MEDS: CILOSTAZOL 100 MG TABLET PO SCH ×2 (06:13→17:09)
[2017-07-29] MEDS: INSULIN ASPART 100 UNITS/ML SQ PRN ×4 (06:15→20:47)
[2017-07-29 07:24] VITALS: BP 136/66
[2017-07-29 07:53] LABS: CALCIUM, TOTAL 9.1 mg/dL (8.8-10.5); CREATININE 1.87 mg/dL (0.60-1.30); POTASSIUM 5.8 mmol/L (3.5-5.1)
[2017-07-29] MEDS ORDERED: VANCOMYCIN HCL 1.25 GM in DEXTROSE 5%-WATER 250 ML IV SCH (08:00)
[2017-07-29] MEDS: PANTOPRAZOLE SODIUM 40 MG/VIAL IVP SCH (08:32)
[2017-07-29] MEDS: ATORVASTATIN CALCIUM 10 MG TABLET PO SCH (08:32)
[2017-07-29] MEDS: VALSARTAN 160 MG TABLET PO SCH ×2 (08:32→20:43)
[2017-07-29] MEDS: CLOPIDOGREL BISULFATE 75 MG TABLET PO SCH (08:32)
[2017-07-29] MEDS: FLUTICASONE/VILANTEROL 100-25 MCG/INH INHALER [14] IH SCH (08:33)
[2017-07-29] MEDS: CHOLECALCIFEROL (VIT D3) 1,000 UNITS TABLET PO SCH (08:33)
[2017-07-29] MEDS: DOCUSATE SODIUM 100 MG CAPSULE PO SCH ×2 (08:33→20:43)
[2017-07-29] MEDS: TIOTROPIUM BROMIDE 18 MCG/INH HANDIHALER [5] IH SCH (08:33)
[2017-07-29] MEDS: AMIODARONE HCL 200 MG TABLET PO SCH (08:33)
[2017-07-29] MEDS: ALLOPURINOL 100 MG TABLET PO SCH (08:34)
[2017-07-29] MEDS: OXYGEN THERAPY IH SCH ×2 (08:34→20:42)
[2017-07-29] MEDS: METOPROLOL SUCCINATE 50 MG ER TABLET PO SCH (08:35)
[2017-07-29] MEDS: GABAPENTIN 100 MG CAPSULE PO SCH ×2 (08:35→20:44)
[2017-07-29] MEDS: POTASSIUM CHLORIDE 10 MEQ ER TABLET PO SCH (08:37)
[2017-07-29] MEDS: HYDROCODONE/ACETAMINOPHEN 5-325 MG TABLET PO PRN ×2 (10:08→17:27)
[2017-07-29 11:32] VITALS: BP 147/74
[2017-07-29] MEDS ORDERED: VANCOMYCIN HCL 500 MG in DEXTROSE 5%-WATER 100 ML IV ONE (12:00)
[2017-07-29] MEDS ORDERED: SODIUM POLYSTYRENE SULFONATE 15 GM/60 ML SUSPENSION BOTTLE PO ONE (12:15)
[2017-07-29] MEDS: BUMETANIDE 1 MG TABLET PO SCH ×2 (14:45→20:43)
[2017-07-29 15:37] VITALS: BP 96/50
[2017-07-29] MEDS: POVIDONE-IODINE 10% 120 ML SOLUTION TP SCH (16:00)
[2017-07-29] MEDS: RIVAROXABAN 15 MG TABLET PO SCH (17:09)
[2017-07-29 18:38] LABS: GLUCOMETER DEV NAME(LOC) 5S 2N; GLUCOSE,POINT OF CARE 215 MG/DL (70-110)
[2017-07-29 18:53] LABS: GLUCOMETER DEV NAME(LOC) 5S 1M; GLUCOSE,POINT OF CARE 218 MG/DL (70-110)
[2017-07-29 18:53] LABS: GLUCOMETER DEV NAME(LOC) 5N 1N; GLUCOSE,POINT OF CARE 218 MG/DL (70-110)
[2017-07-29 18:54] LABS: GLUCOMETER DEV NAME(LOC) 5S 1M; GLUCOSE,POINT OF CARE 246 MG/DL (70-110)
[2017-07-29 20:30] VITALS: BP 102/66
[2017-07-29] MEDS: TAMSULOSIN HCL 0.4 MG CAPSULE PO SCH (20:44)
[2017-07-30 00:18] VITALS: BP 129/74
[2017-07-30 01:33] LABS: GLUCOMETER DEV NAME(LOC) 5S 1M; GLUCOSE,POINT OF CARE 178 MG/DL (70-110)
[2017-07-30] MEDS: ALBUTEROL SULFATE 2.5 MG/0.5 ML NEB SOLUTION NEB SCH ×4 (02:24→20:11)
[2017-07-30] MEDS: IPRATROPIUM BROMIDE 0.5 MG/2.5 ML NEB SOLUTION NEB SCH ×4 (02:24→20:10)
[2017-07-30 05:14] VITALS: BP 123/74
[2017-07-30] MEDS: CILOSTAZOL 100 MG TABLET PO SCH ×2 (06:25→17:29)
[2017-07-30 07:27] LABS: CALCIUM, TOTAL 8.8 mg/dL (8.8-10.5); CREATININE 1.81 mg/dL (0.60-1.30)
[2017-07-30 07:59] VITALS: BP 136/90
[2017-07-30] MEDS: TIOTROPIUM BROMIDE 18 MCG/INH HANDIHALER [5] IH SCH (08:13)
[2017-07-30] MEDS: FLUTICASONE/VILANTEROL 100-25 MCG/INH INHALER [14] IH SCH (08:13)
[2017-07-30] MEDS: OXYGEN THERAPY IH SCH ×2 (08:13→21:02)
[2017-07-30] MEDS: VANCOMYCIN HCL 1 GM/D5% WATER 200 ML IV SCH (08:13)
[2017-07-30] MEDS: CLOPIDOGREL BISULFATE 75 MG TABLET PO SCH (08:14)
[2017-07-30] MEDS: METOPROLOL SUCCINATE 50 MG ER TABLET PO SCH (08:14)
[2017-07-30] MEDS: CHOLECALCIFEROL (VIT D3) 1,000 UNITS TABLET PO SCH (08:14)
[2017-07-30] MEDS: AMIODARONE HCL 200 MG TABLET PO SCH (08:14)
[2017-07-30] MEDS: PANTOPRAZOLE SODIUM 40 MG/VIAL IVP SCH (08:14)
[2017-07-30] MEDS: ATORVASTATIN CALCIUM 10 MG TABLET PO SCH (08:14)
[2017-07-30] MEDS: DOCUSATE SODIUM 100 MG CAPSULE PO SCH ×2 (08:15→21:01)
[2017-07-30] MEDS: GABAPENTIN 100 MG CAPSULE PO SCH (08:15)
[2017-07-30] MEDS: VALSARTAN 160 MG TABLET PO SCH ×2 (08:15→21:00)
[2017-07-30] MEDS: BUMETANIDE 1 MG TABLET PO SCH ×2 (08:15→21:01)
[2017-07-30] MEDS: ISOSORB DINIT/HYDRALAZINE HCL 20-37.5 MG TABLET PO SCH ×2 (08:15→21:01)
[2017-07-30] MEDS: ALLOPURINOL 100 MG TABLET PO SCH (08:16)
[2017-07-30] MEDS: POVIDONE-IODINE 10% 120 ML SOLUTION TP SCH (08:16)
[2017-07-30] MEDS: POTASSIUM CHLORIDE 10 MEQ ER TABLET PO SCH (08:16)
[2017-07-30] MEDS: HYDROCODONE/ACETAMINOPHEN 5-325 MG TABLET PO PRN (08:24)
[2017-07-30] MEDS: INSULIN DETEMIR 100 UNITS/ML SQ SCH (10:02)
[2017-07-30 10:58] LABS: GLUCOMETER DEV NAME(LOC) 5S 1M; GLUCOSE,POINT OF CARE 162 MG/DL (70-110)
[2017-07-30 11:25] VITALS: BP 106/49
[2017-07-30] MEDS: INSULIN ASPART 100 UNITS/ML SQ PRN ×3 (11:51→21:08)
[2017-07-30 15:51] VITALS: BP 124/75
[2017-07-30] MEDS: RIVAROXABAN 15 MG TABLET PO SCH (17:29)
[2017-07-30 20:00] VITALS: BP 127/76
[2017-07-30] MEDS: TAMSULOSIN HCL 0.4 MG CAPSULE PO SCH (21:01)
[2017-07-31] VITALS (7 sets, daily range): BP systolic 90–125; BP diastolic 54–74
[2017-07-31] MEDS: IPRATROPIUM BROMIDE 0.5 MG/2.5 ML NEB SOLUTION NEB SCH ×4 (01:26→20:07)
[2017-07-31] MEDS: ALBUTEROL SULFATE 2.5 MG/0.5 ML NEB SOLUTION NEB SCH ×4 (01:26→20:07)
[2017-07-31] MEDS: CILOSTAZOL 100 MG TABLET PO SCH ×2 (05:45→16:44)
[2017-07-31 07:27] LABS: CALCIUM, TOTAL 8.7 mg/dL (8.8-10.5); CREATININE 1.9 mg/dL (0.60-1.30); PHOSPHORUS 3.7 mg/dL (2.5-4.9); POTASSIUM 4.5 mmol/L (3.5-5.1); VANCOMYCIN,RANDOM 20.2 mcg/mL (25.0-50.0)
[2017-07-31 08:03] LABS: GLUCOMETER DEV NAME(LOC) 5S 1M; GLUCOSE,POINT OF CARE 190 MG/DL (70-110)
[2017-07-31 08:03] LABS: GLUCOMETER DEV NAME(LOC) 5S 1M; GLUCOSE,POINT OF CARE 264 MG/DL (70-110)
[2017-07-31 08:03] LABS: GLUCOMETER DEV NAME(LOC) 5S 1M; GLUCOSE,POINT OF CARE 309 MG/DL (70-110)
[2017-07-31] MEDS: VALSARTAN 160 MG TABLET PO SCH (08:58)
[2017-07-31] MEDS: POVIDONE-IODINE 10% 120 ML SOLUTION TP SCH (08:59)
[2017-07-31] MEDS: CLOPIDOGREL BISULFATE 75 MG TABLET PO SCH (09:00)
[2017-07-31] MEDS: METOPROLOL SUCCINATE 50 MG ER TABLET PO SCH ×2 (09:00→09:26)
[2017-07-31] MEDS: OXYGEN THERAPY IH SCH ×2 (09:00→23:46)
[2017-07-31] MEDS: POTASSIUM CHLORIDE 10 MEQ ER TABLET PO SCH ×2 (09:00→09:26)
[2017-07-31] MEDS: TIOTROPIUM BROMIDE 18 MCG/INH HANDIHALER [5] IH SCH (09:25)
[2017-07-31] MEDS: VANCOMYCIN HCL 1 GM/D5% WATER 200 ML IV SCH (09:25)
[2017-07-31] MEDS: AMIODARONE HCL 200 MG TABLET PO SCH (09:25)
[2017-07-31] MEDS: PANTOPRAZOLE SODIUM 40 MG/VIAL IVP SCH (09:25)
[2017-07-31] MEDS: ATORVASTATIN CALCIUM 10 MG TABLET PO SCH (09:25)
[2017-07-31] MEDS: FLUTICASONE/VILANTEROL 100-25 MCG/INH INHALER [14] IH SCH (09:25)
[2017-07-31] MEDS: DOCUSATE SODIUM 100 MG CAPSULE PO SCH ×2 (09:26→20:49)
[2017-07-31] MEDS: ALLOPURINOL 100 MG TABLET PO SCH (09:26)
[2017-07-31] MEDS: BUMETANIDE 1 MG TABLET PO SCH ×2 (09:26→20:49)
[2017-07-31] MEDS: ISOSORB DINIT/HYDRALAZINE HCL 20-37.5 MG TABLET PO SCH ×2 (09:26→23:46)
[2017-07-31] MEDS: CHOLECALCIFEROL (VIT D3) 1,000 UNITS TABLET PO SCH (09:27)
[2017-07-31] MEDS: HYDROCODONE/ACETAMINOPHEN 5-325 MG TABLET PO PRN (09:46)
[2017-07-31] MEDS: INSULIN DETEMIR 100 UNITS/ML SQ SCH (09:48)
[2017-07-31] MEDS ORDERED: SODIUM CHLORIDE 0.9% 1,000 ML IV ONE (10:30)
[2017-07-31] MEDS: INSULIN ASPART 100 UNITS/ML SQ PRN ×3 (12:25→20:48)
[2017-07-31] MEDS: RIVAROXABAN 15 MG TABLET PO SCH (16:44)
[2017-07-31 18:58] LABS: GLUCOMETER DEV NAME(LOC) 5S 1M; GLUCOSE,POINT OF CARE 267 MG/DL (70-110)
[2017-07-31 18:58] LABS: GLUCOMETER DEV NAME(LOC) 5S 1M; GLUCOSE,POINT OF CARE 416 MG/DL (70-110)
[2017-07-31 18:58] LABS: GLUCOMETER DEV NAME(LOC) 5N 1N; GLUCOSE,POINT OF CARE 209 MG/DL (70-110)
[2017-07-31 22:37] LABS: GLUCOMETER DEV NAME(LOC) 5N 1N; GLUCOSE,POINT OF CARE 257 MG/DL (70-110)
[2017-08-01] MEDS ORDERED: KETAMINE HCL 50 MG/ML 10 ML VIAL IVP ONE (00:48)
[2017-08-01] MEDS: IPRATROPIUM BROMIDE 0.5 MG/2.5 ML NEB SOLUTION NEB SCH ×4 (02:05→20:00)
[2017-08-01] MEDS: ALBUTEROL SULFATE 2.5 MG/0.5 ML NEB SOLUTION NEB SCH ×4 (02:05→20:00)
[2017-08-01 03:54] VITALS: BP 122/71
[2017-08-01] MEDS ORDERED: SODIUM CHLORIDE 0.9% 1,000 ML IV ONE ×2 (05:45→05:47)
[2017-08-01] MEDS ORDERED: LIDOCAINE HCL/PF 1% 30 ML VIAL ONE (06:49)
[2017-08-01] MEDS ORDERED: BUPIVACAINE HCL/PF 0.5% 30 ML VIAL ONE (06:50)
[2017-08-01] MEDS ORDERED: SODIUM CL IRRIG SOLN BAG 3,000 ML IRRIG ONE (07:19)
[2017-08-01] MEDS ORDERED: GELATIN SPONGE,ABSORBABLE 100 MM TP ONE ×3 (07:19→08:10)
[2017-08-01] MEDS ORDERED: THROMBIN, BOVINE 20000 UNITS/VIAL POWDER TP ONE ×2 (07:19→08:10)
[2017-08-01 07:58] LABS: GLUCOMETER DEV NAME(LOC) 5N 1N; GLUCOSE,POINT OF CARE 185 MG/DL (70-110)
[2017-08-01] MEDS ORDERED: HYDROmorphone 2 MG/ML SYRINGE IVP PRN (08:45)
[2017-08-01] MEDS ORDERED: SODIUM CHLORIDE 0.9% 500 ML IV ONE ×3 (08:45→11:46)
[2017-08-01] MEDS ORDERED: FentaNYL CITRATE-PF 100 MCG/2 ML VIAL IVP PRN (08:45)
[2017-08-01] MEDS ORDERED: MEPERIDINE-PF 25 MG/ML SYRINGE IVP PRN (08:45)
[2017-08-01] MEDS: POVIDONE-IODINE 10% 120 ML SOLUTION TP SCH (09:00)
[2017-08-01] MEDS: INSULIN DETEMIR 100 UNITS/ML SQ SCH (09:00)
[2017-08-01 10:29] LABS: BASOPHILS % (AUTO) 0.4 % (0.0-2.0); EOSINOPHILS % (AUTO) 3.8 % (1.0-6.0); HEMATOCRIT 27.6 % (41-53); HEMOGLOBIN 9.5 g/dL (13.5-17.5); LYMPHOCYTES # (AUTO) 0.4 K/uL (1.0-4.8); LYMPHOCYTES % (AUTO) 6.6 % (22.0-44.0); MEAN CORPUSCULAR HEMOGLOBIN 33.7 pg (26.0-34.0); MEAN CORPUSCULAR HGB CONC 34.3 G/dL (31.0-37.0); MEAN CORPUSCULAR VOLUME 99 fL (80-100); MONOCYTES # (AUTO) 0.3 K/uL (0.1-1.0); MONOCYTES % (AUTO) 5.2 % (2.0-9.0); NEUTROPHILS # (AUTO) 4.7 K/uL (1.8-7.7); PLATELET COUNT (AUTO) 168 K/uL (150-450); RED BLOOD CELL COUNT(AUTO) 2.81 MIL/uL (4.50-5.90); RED CELL DISTRIBUTION WIDTH 14.9 % (11.5-14.5)
[2017-08-01 10:34] VITALS: BP 143/57
[2017-08-01] MEDS: HYDROCODONE/ACETAMINOPHEN 5-325 MG TABLET PO PRN ×2 (10:34→18:23)
[2017-08-01 10:41] LABS: ALBUMIN 2.5 g/dL (3.4-5.0); BILIRUBIN,TOTAL 0.6 mg/dL (0.1-1.0); CALCIUM, TOTAL 8.3 mg/dL (8.8-10.5); CREATININE 1.74 mg/dL (0.60-1.30); MAGNESIUM 1.9 mg/dL (1.80-2.40); POTASSIUM 4.4 mmol/L (3.5-5.1); TOTAL PROTEIN, SERUM 6.4 g/dL (6.4-8.2)
[2017-08-01 11:23] VITALS: BP 104/55
[2017-08-01] MEDS: CILOSTAZOL 100 MG TABLET PO SCH ×2 (11:37→17:46)
[2017-08-01] MEDS: TIOTROPIUM BROMIDE 18 MCG/INH HANDIHALER [5] IH SCH (11:39)
[2017-08-01] MEDS: VANCOMYCIN HCL 1 GM/D5% WATER 200 ML IV SCH (11:39)
[2017-08-01] MEDS: FLUTICASONE/VILANTEROL 100-25 MCG/INH INHALER [14] IH SCH (11:40)
[2017-08-01] MEDS: PANTOPRAZOLE SODIUM 40 MG/VIAL IVP SCH (11:40)
[2017-08-01] MEDS: ISOSORB DINIT/HYDRALAZINE HCL 20-37.5 MG TABLET PO SCH ×2 (11:41→20:48)
[2017-08-01] MEDS: BUMETANIDE 1 MG TABLET PO SCH ×2 (11:41→20:48)
[2017-08-01] MEDS: ATORVASTATIN CALCIUM 10 MG TABLET PO SCH (11:42)
[2017-08-01] MEDS: DOCUSATE SODIUM 100 MG CAPSULE PO SCH ×2 (11:42→20:48)
[2017-08-01] MEDS: METOPROLOL SUCCINATE 50 MG ER TABLET PO SCH (11:43)
[2017-08-01] MEDS: AMIODARONE HCL 200 MG TABLET PO SCH (11:43)
[2017-08-01] MEDS: CHOLECALCIFEROL (VIT D3) 1,000 UNITS TABLET PO SCH (11:44)
[2017-08-01] MEDS: ALLOPURINOL 100 MG TABLET PO SCH (11:44)
[2017-08-01 12:04] LABS: GLUCOMETER DEV NAME(LOC) 5N 1N; GLUCOSE,POINT OF CARE 256 MG/DL (70-110)
[2017-08-01] MEDS: INSULIN ASPART 100 UNITS/ML SQ PRN ×3 (12:35→20:50)
[2017-08-01 15:41] VITALS: BP 105/54
[2017-08-01] MEDS: RIVAROXABAN 15 MG TABLET PO SCH (17:46)
[2017-08-01 18:52] LABS: GLUCOMETER DEV NAME(LOC) 5N 1N; GLUCOSE,POINT OF CARE 328 MG/DL (70-110)
[2017-08-01 19:27] VITALS: BP 114/64
[2017-08-01] MEDS: OXYGEN THERAPY IH SCH (20:51)
[2017-08-02] VITALS (7 sets, daily range): BP systolic 110–127; BP diastolic 55–73
[2017-08-02] MEDS ORDERED: PHENYLEPHRINE HCL 10 MG/ML VIAL IVP ONE (01:37)
[2017-08-02] MEDS ORDERED: PROPOFOL 1% 20 ML VIAL IVP ONE (01:37)
[2017-08-02] MEDS ORDERED: 0.9% SODIUM CHLORIDE 10 ML VIAL IVP ONE (01:37)
[2017-08-02] MEDS ORDERED: MIDAZOLAM HCL 2 MG/2 ML VIAL IVP ONE (01:37)
[2017-08-02] MEDS ORDERED: FentaNYL CITRATE-PF 100 MCG/2 ML VIAL IVP ONE (01:37)
[2017-08-02] MEDS: ALBUTEROL SULFATE 2.5 MG/0.5 ML NEB SOLUTION NEB SCH ×2 (01:54→20:00)
[2017-08-02] MEDS: IPRATROPIUM BROMIDE 0.5 MG/2.5 ML NEB SOLUTION NEB SCH ×2 (01:54→20:00)
[2017-08-02] MEDS: CILOSTAZOL 100 MG TABLET PO SCH ×2 (05:35→18:25)
[2017-08-02] MEDS: INSULIN ASPART 100 UNITS/ML SQ PRN (05:35)
[2017-08-02 06:37] LABS: BASOPHILS % (AUTO) 0.3 % (0.0-2.0); EOSINOPHILS % (AUTO) 3.6 % (1.0-6.0); HEMATOCRIT 26.3 % (41-53); HEMOGLOBIN 9.1 g/dL (13.5-17.5); LYMPHOCYTES # (AUTO) 0.6 K/uL (1.0-4.8); MEAN CORPUSCULAR HEMOGLOBIN 33.9 pg (26.0-34.0); MEAN CORPUSCULAR HGB CONC 34.5 G/dL (31.0-37.0); MEAN CORPUSCULAR VOLUME 98 fL (80-100); MONOCYTES # (AUTO) 0.8 K/uL (0.1-1.0); MONOCYTES % (AUTO) 11.6 % (2.0-9.0); NEUTROPHILS # (AUTO) 5.2 K/uL (1.8-7.7); NEUTROPHILS % (AUTO) 76.5 % (40.0-70.0); PLATELET COUNT (AUTO) 169 K/uL (150-450); RED BLOOD CELL COUNT(AUTO) 2.67 MIL/uL (4.50-5.90); RED CELL DISTRIBUTION WIDTH 14.7 % (11.5-14.5)
[2017-08-02 06:49] LABS: ALBUMIN 2.6 g/dL (3.4-5.0); BILIRUBIN,TOTAL 0.5 mg/dL (0.1-1.0); CALCIUM, TOTAL 8.7 mg/dL (8.8-10.5); CREATININE 1.76 mg/dL (0.60-1.30); MAGNESIUM 1.8 mg/dL (1.80-2.40); POTASSIUM 4.6 mmol/L (3.5-5.1); TOTAL PROTEIN, SERUM 6.5 g/dL (6.4-8.2)
[2017-08-02] MEDS: HYDROCODONE/ACETAMINOPHEN 5-325 MG TABLET PO PRN ×3 (07:21→18:26)
[2017-08-02] MEDS: VANCOMYCIN HCL 1 GM/D5% WATER 200 ML IV SCH (08:32)
[2017-08-02] MEDS: TIOTROPIUM BROMIDE 18 MCG/INH HANDIHALER [5] IH SCH (08:33)
[2017-08-02] MEDS: FLUTICASONE/VILANTEROL 100-25 MCG/INH INHALER [14] IH SCH (08:33)
[2017-08-02] MEDS: PANTOPRAZOLE SODIUM 40 MG/VIAL IVP SCH (08:33)
[2017-08-02] MEDS: ATORVASTATIN CALCIUM 10 MG TABLET PO SCH (08:34)
[2017-08-02] MEDS: DOCUSATE SODIUM 100 MG CAPSULE PO SCH ×2 (08:34→20:27)
[2017-08-02] MEDS: CLOPIDOGREL BISULFATE 75 MG TABLET PO SCH (08:35)
[2017-08-02] MEDS: BUMETANIDE 1 MG TABLET PO SCH ×2 (08:35→20:27)
[2017-08-02] MEDS: AMIODARONE HCL 200 MG TABLET PO SCH (08:35)
[2017-08-02] MEDS: ISOSORB DINIT/HYDRALAZINE HCL 20-37.5 MG TABLET PO SCH ×2 (08:36→20:28)
[2017-08-02] MEDS: ALLOPURINOL 100 MG TABLET PO SCH (08:37)
[2017-08-02] MEDS: CHOLECALCIFEROL (VIT D3) 1,000 UNITS TABLET PO SCH (08:37)
[2017-08-02] MEDS: POVIDONE-IODINE 10% 120 ML SOLUTION TP SCH (08:42)
[2017-08-02] MEDS: INSULIN DETEMIR 100 UNITS/ML SQ SCH (08:42)
[2017-08-02 14:03] LABS: GLUCOMETER DEV NAME(LOC) 5S 1M; GLUCOSE,POINT OF CARE 204 MG/DL (70-110)
[2017-08-02] MEDS: METOPROLOL SUCCINATE 50 MG ER TABLET PO SCH (14:22)
[2017-08-02] MEDS: INSULIN ASPART 100 UNITS/ML SQ SCH ×2 (14:28→17:30)
[2017-08-02] MEDS ORDERED: DSS100 PO (16:02)
[2017-08-02] MEDS ORDERED: BUME1TAB17 PO (16:02)
[2017-08-02] MEDS ORDERED: AUD NEB (16:03)
[2017-08-02] MEDS ORDERED: INSU100V12 SQ (16:09)
[2017-08-02] MEDS ORDERED: IPRNEB IH (16:10)
[2017-08-02 17:33] LABS: GLUCOMETER DEV NAME(LOC) 5N 1N; GLUCOSE,POINT OF CARE 217 MG/DL (70-110)
[2017-08-02 17:33] LABS: GLUCOMETER DEV NAME(LOC) 5N 1N; GLUCOSE,POINT OF CARE 266 MG/DL (70-110)
[2017-08-02] MEDS: RIVAROXABAN 15 MG TABLET PO SCH (18:25)
[2017-08-02 19:33] LABS: GLUCOMETER DEV NAME(LOC) 5S 1M; GLUCOSE,POINT OF CARE 137 MG/DL (70-110)
[2017-08-02] MEDS: OXYGEN THERAPY IH SCH ×2 (20:00)
[2017-08-03] MEDS: CefTAZidime PENTAHYDRATE 1 GM in DEXTROSE 5%-WATER 50 ML IV SCH ×2 (01:52→14:18)
[2017-08-03] MEDS: IPRATROPIUM BROMIDE 0.5 MG/2.5 ML NEB SOLUTION NEB SCH ×4 (02:00→20:00)
[2017-08-03] MEDS: ALBUTEROL SULFATE 2.5 MG/0.5 ML NEB SOLUTION NEB SCH ×4 (02:00→20:00)
[2017-08-03 04:11] VITALS: BP 104/85
[2017-08-03] MEDS: HYDROCODONE/ACETAMINOPHEN 5-325 MG TABLET PO PRN ×2 (04:22→08:42)
[2017-08-03] MEDS: CILOSTAZOL 100 MG TABLET PO SCH ×2 (06:39→18:05)
[2017-08-03] MEDS: INSULIN ASPART 100 UNITS/ML SQ SCH ×3 (06:48→17:30)
[2017-08-03 07:03] LABS: BASOPHILS % (AUTO) 0.4 % (0.0-2.0); HEMATOCRIT 26.9 % (41-53); HEMOGLOBIN 9.5 g/dL (13.5-17.5); LYMPHOCYTES # (AUTO) 0.5 K/uL (1.0-4.8); MEAN CORPUSCULAR HEMOGLOBIN 34.9 pg (26.0-34.0); MEAN CORPUSCULAR HGB CONC 35.3 G/dL (31.0-37.0); MEAN CORPUSCULAR VOLUME 99 fL (80-100); MONOCYTES # (AUTO) 0.8 K/uL (0.1-1.0); MONOCYTES % (AUTO) 9.1 % (2.0-9.0); NEUTROPHILS # (AUTO) 7.8 K/uL (1.8-7.7); NEUTROPHILS % (AUTO) 83.5 % (40.0-70.0); PLATELET COUNT (AUTO) 194 K/uL (150-450); RED BLOOD CELL COUNT(AUTO) 2.71 MIL/uL (4.50-5.90); RED CELL DISTRIBUTION WIDTH 14.6 % (11.5-14.5)
[2017-08-03 07:05] VITALS: BP 102/76
[2017-08-03 07:19] LABS: ALBUMIN 2.6 g/dL (3.4-5.0); BILIRUBIN,TOTAL 0.9 mg/dL (0.1-1.0); CALCIUM, TOTAL 8.5 mg/dL (8.8-10.5); CREATININE 1.8 mg/dL (0.60-1.30); MAGNESIUM 1.8 mg/dL (1.80-2.40); PHOSPHORUS 2.9 mg/dL (2.5-4.9); POTASSIUM 3.7 mmol/L (3.5-5.1); TOTAL PROTEIN, SERUM 6.7 g/dL (6.4-8.2); VANCOMYCIN,RANDOM 24.9 mcg/mL (25.0-50.0)
[2017-08-03 07:29] LABS: % IRON SATURATION 15.5 % (30-44)
[2017-08-03 08:03] LABS: GLUCOMETER DEV NAME(LOC) 5N 1N; GLUCOSE,POINT OF CARE 135 MG/DL (70-110)
[2017-08-03 08:08] LABS: GLUCOMETER DEV NAME(LOC) 5S 1M; GLUCOSE,POINT OF CARE 206 MG/DL (70-110)
[2017-08-03] MEDS: TIOTROPIUM BROMIDE 18 MCG/INH HANDIHALER [5] IH SCH (08:29)
[2017-08-03] MEDS: FLUTICASONE/VILANTEROL 100-25 MCG/INH INHALER [14] IH SCH (08:29)
[2017-08-03] MEDS: PANTOPRAZOLE SODIUM 40 MG/VIAL IVP SCH (08:31)
[2017-08-03] MEDS: ALLOPURINOL 100 MG TABLET PO SCH (08:41)
[2017-08-03] MEDS: BUMETANIDE 1 MG TABLET PO SCH ×2 (08:43→20:58)
[2017-08-03] MEDS: DOCUSATE SODIUM 100 MG CAPSULE PO SCH ×2 (08:43→20:58)
[2017-08-03] MEDS: CLOPIDOGREL BISULFATE 75 MG TABLET PO SCH (08:43)
[2017-08-03] MEDS: CHOLECALCIFEROL (VIT D3) 1,000 UNITS TABLET PO SCH (08:44)
[2017-08-03] MEDS: ATORVASTATIN CALCIUM 10 MG TABLET PO SCH (08:44)
[2017-08-03] MEDS: EPOETIN ALFA 10,000 UNITS/ML VIAL SQ SCH (08:45)
[2017-08-03] MEDS: POVIDONE-IODINE 10% 120 ML SOLUTION TP SCH (08:45)
[2017-08-03] MEDS: VANCOMYCIN HCL 750 MG in DEXTROSE 5%-WATER 150 ML IV SCH (08:47)
[2017-08-03] MEDS: INSULIN DETEMIR 100 UNITS/ML SQ SCH (08:49)
[2017-08-03] MEDS: METOPROLOL SUCCINATE 50 MG ER TABLET PO SCH (09:00)
[2017-08-03 11:22] VITALS: BP 120/71
[2017-08-03] MEDS: SOD FERRIC GLUC COMPLX/SUCROSE 125 MG in SODIUM CHLORIDE 0.9% 100 ML IV SCH (12:26)
[2017-08-03] MEDS: ISOSORB DINIT/HYDRALAZINE HCL 20-37.5 MG TABLET PO SCH ×2 (12:27→20:58)
[2017-08-03] MEDS: AMIODARONE HCL 200 MG TABLET PO SCH (12:27)
[2017-08-03 14:18] LABS: GLUCOMETER DEV NAME(LOC) 5S 1M; GLUCOSE,POINT OF CARE 157 MG/DL (70-110)
[2017-08-03 15:19] VITALS: BP 129/76
[2017-08-03] MEDS: RIVAROXABAN 15 MG TABLET PO SCH (18:05)
[2017-08-03 19:57] LABS: GLUCOMETER DEV NAME(LOC) 5N 1N; GLUCOSE,POINT OF CARE 204 MG/DL (70-110)
[2017-08-03] MEDS: OXYGEN THERAPY IH SCH ×2 (20:00→20:18)
[2017-08-03 20:28] VITALS: BP 139/64
[2017-08-03 23:08] LABS: GLUCOMETER DEV NAME(LOC) 5N 1N; GLUCOSE,POINT OF CARE 185 MG/DL (70-110)
[2017-08-04] VITALS: BP 134/78
[2017-08-04] MEDS: CefTAZidime PENTAHYDRATE 1 GM in DEXTROSE 5%-WATER 50 ML IV SCH ×2 (00:13→13:52)
[2017-08-04] MEDS: IPRATROPIUM BROMIDE 0.5 MG/2.5 ML NEB SOLUTION NEB SCH ×4 (02:00→19:39)
[2017-08-04] MEDS: ALBUTEROL SULFATE 2.5 MG/0.5 ML NEB SOLUTION NEB SCH ×4 (02:00→19:39)
[2017-08-04 05:12] VITALS: BP 115/56
[2017-08-04] MEDS: CILOSTAZOL 100 MG TABLET PO SCH ×2 (05:59→17:33)
[2017-08-04 06:39] LABS: CALCIUM, TOTAL 8.7 mg/dL (8.8-10.5); CREATININE 1.67 mg/dL (0.60-1.30); POTASSIUM 3.5 mmol/L (3.5-5.1)
[2017-08-04] MEDS: OXYGEN THERAPY IH SCH ×4 (07:26→19:39)
[2017-08-04] MEDS: INSULIN ASPART 100 UNITS/ML SQ SCH ×3 (07:30→17:30)
[2017-08-04 07:33] VITALS: BP 148/74
[2017-08-04] MEDS: CHOLECALCIFEROL (VIT D3) 1,000 UNITS TABLET PO SCH (08:32)
[2017-08-04] MEDS: VANCOMYCIN HCL 750 MG in DEXTROSE 5%-WATER 150 ML IV SCH (08:32)
[2017-08-04] MEDS: AMIODARONE HCL 200 MG TABLET PO SCH (08:32)
[2017-08-04] MEDS: PANTOPRAZOLE SODIUM 40 MG/VIAL IVP SCH (08:32)
[2017-08-04] MEDS: DOCUSATE SODIUM 100 MG CAPSULE PO SCH ×2 (08:32→20:25)
[2017-08-04] MEDS: ATORVASTATIN CALCIUM 10 MG TABLET PO SCH (08:32)
[2017-08-04] MEDS: CLOPIDOGREL BISULFATE 75 MG TABLET PO SCH (08:32)
[2017-08-04] MEDS: TIOTROPIUM BROMIDE 18 MCG/INH HANDIHALER [5] IH SCH (08:33)
[2017-08-04] MEDS: FLUTICASONE/VILANTEROL 100-25 MCG/INH INHALER [14] IH SCH (08:33)
[2017-08-04] MEDS: ISOSORB DINIT/HYDRALAZINE HCL 20-37.5 MG TABLET PO SCH ×2 (08:33→20:24)
[2017-08-04] MEDS: BUMETANIDE 1 MG TABLET PO SCH ×2 (08:33→20:26)
[2017-08-04] MEDS: ALLOPURINOL 100 MG TABLET PO SCH (08:34)
[2017-08-04] MEDS: METOPROLOL SUCCINATE 50 MG ER TABLET PO SCH (08:34)
[2017-08-04] MEDS: INSULIN DETEMIR 100 UNITS/ML SQ SCH (08:34)
[2017-08-04] MEDS: POVIDONE-IODINE 10% 120 ML SOLUTION TP SCH (08:46)
[2017-08-04 09:52] LABS: GLUCOMETER DEV NAME(LOC) 5N 1N; GLUCOSE,POINT OF CARE 160 MG/DL (70-110)
[2017-08-04 11:13] VITALS: BP 130/76
[2017-08-04] MEDS: SOD FERRIC GLUC COMPLX/SUCROSE 125 MG in SODIUM CHLORIDE 0.9% 100 ML IV SCH (12:43)
[2017-08-04 13:38] LABS: GLUCOMETER DEV NAME(LOC) 5S 1M; GLUCOSE,POINT OF CARE 240 MG/DL (70-110)
[2017-08-04] MEDS: ENALAPRIL MALEATE 2.5 MG TABLET PO SCH (13:52)
[2017-08-04 15:59] VITALS: BP 116/59
[2017-08-04] MEDS: HYDROCODONE/ACETAMINOPHEN 5-325 MG TABLET PO PRN ×2 (16:14→20:26)
[2017-08-04] MEDS: RIVAROXABAN 15 MG TABLET PO SCH (17:33)
[2017-08-04 19:47] LABS: GLUCOMETER DEV NAME(LOC) 5S 1M; GLUCOSE,POINT OF CARE 150 MG/DL (70-110)
[2017-08-04 20:27] VITALS: BP 105/58
[2017-08-05] VITALS (7 sets, daily range): BP systolic 94–122; BP diastolic 46–67
[2017-08-05] MEDS: IPRATROPIUM BROMIDE 0.5 MG/2.5 ML NEB SOLUTION NEB SCH ×4 (02:00→19:46)
[2017-08-05] MEDS: ALBUTEROL SULFATE 2.5 MG/0.5 ML NEB SOLUTION NEB SCH ×4 (02:00→19:46)
[2017-08-05 02:38] LABS: GLUCOMETER DEV NAME(LOC) 5S 1M; GLUCOSE,POINT OF CARE 206 MG/DL (70-110)
[2017-08-05] MEDS: CILOSTAZOL 100 MG TABLET PO SCH ×2 (06:33→18:11)
[2017-08-05 06:49] LABS: GLUCOMETER DEV NAME(LOC) 5S 1M; GLUCOSE,POINT OF CARE 160 MG/DL (70-110)
[2017-08-05] MEDS: INSULIN ASPART 100 UNITS/ML SQ SCH ×3 (07:30→17:30)
[2017-08-05 07:45] LABS: CALCIUM, TOTAL 8.5 mg/dL (8.8-10.5); CREATININE 1.9 mg/dL (0.60-1.30); PHOSPHORUS 3.7 mg/dL (2.5-4.9); POTASSIUM 3.7 mmol/L (3.5-5.1)
[2017-08-05] MEDS: HYDROCODONE/ACETAMINOPHEN 5-325 MG TABLET PO PRN ×2 (09:06→18:11)
[2017-08-05] MEDS: CHOLECALCIFEROL (VIT D3) 1,000 UNITS TABLET PO SCH (09:08)
[2017-08-05] MEDS: DOCUSATE SODIUM 100 MG CAPSULE PO SCH ×2 (09:08→20:57)
[2017-08-05] MEDS: CLOPIDOGREL BISULFATE 75 MG TABLET PO SCH (09:08)
[2017-08-05] MEDS: ISOSORB DINIT/HYDRALAZINE HCL 20-37.5 MG TABLET PO SCH ×2 (09:09→20:57)
[2017-08-05] MEDS: PANTOPRAZOLE SODIUM 40 MG/VIAL IVP SCH (09:09)
[2017-08-05] MEDS: BUMETANIDE 1 MG TABLET PO SCH (09:09)
[2017-08-05] MEDS: AMIODARONE HCL 200 MG TABLET PO SCH (09:09)
[2017-08-05] MEDS: TIOTROPIUM BROMIDE 18 MCG/INH HANDIHALER [5] IH SCH (09:09)
[2017-08-05] MEDS: METOPROLOL SUCCINATE 50 MG ER TABLET PO SCH (09:09)
[2017-08-05] MEDS: FLUTICASONE/VILANTEROL 100-25 MCG/INH INHALER [14] IH SCH (09:09)
[2017-08-05] MEDS: ATORVASTATIN CALCIUM 10 MG TABLET PO SCH (09:09)
[2017-08-05] MEDS: POVIDONE-IODINE 10% 120 ML SOLUTION TP SCH (09:10)
[2017-08-05] MEDS: ENALAPRIL MALEATE 2.5 MG TABLET PO SCH (09:10)
[2017-08-05] MEDS: ALLOPURINOL 100 MG TABLET PO SCH (09:10)
[2017-08-05] MEDS: INSULIN DETEMIR 100 UNITS/ML SQ SCH (09:18)
[2017-08-05] MEDS: OXYGEN THERAPY IH SCH ×3 (09:22→19:46)
[2017-08-05 10:48] LABS: GLUCOMETER DEV NAME(LOC) 5S 1M; GLUCOSE,POINT OF CARE 260 MG/DL (70-110)
[2017-08-05] MEDS: SOD FERRIC GLUC COMPLX/SUCROSE 125 MG in SODIUM CHLORIDE 0.9% 100 ML IV SCH (12:04)
[2017-08-05 17:03] LABS: GLUCOMETER DEV NAME(LOC) 5N 1N; GLUCOSE,POINT OF CARE 320 MG/DL (70-110)
[2017-08-05 17:53] LABS: GLUCOMETER DEV NAME(LOC) 5S 1M; GLUCOSE,POINT OF CARE 143 MG/DL (70-110)
[2017-08-05] MEDS: RIVAROXABAN 15 MG TABLET PO SCH (18:11)
[2017-08-05] MEDS: CefTRIAXone SODIUM 2 GM in DEXTROSE 5%-WATER 20 ML IV SCH (18:11)
[2017-08-06 00:25] VITALS: BP 102/48
[2017-08-06] MEDS: BUMETANIDE 1 MG TABLET PO SCH (00:47)
[2017-08-06] MEDS: ALBUTEROL SULFATE 2.5 MG/0.5 ML NEB SOLUTION NEB SCH ×4 (02:00→20:00)
[2017-08-06] MEDS: IPRATROPIUM BROMIDE 0.5 MG/2.5 ML NEB SOLUTION NEB SCH ×4 (02:00→20:00)
[2017-08-06 05:33] LABS: GLUCOMETER DEV NAME(LOC) 5N 1N; GLUCOSE,POINT OF CARE 145 MG/DL (70-110)
[2017-08-06 05:40] LABS: BASOPHILS % (AUTO) 0.5 % (0.0-2.0); EOSINOPHILS % (AUTO) 2.4 % (1.0-6.0); HEMATOCRIT 25.8 % (41-53); HEMOGLOBIN 8.9 g/dL (13.5-17.5); LYMPHOCYTES # (AUTO) 0.6 K/uL (1.0-4.8); LYMPHOCYTES % (AUTO) 6.4 % (22.0-44.0); MEAN CORPUSCULAR HEMOGLOBIN 33.7 pg (26.0-34.0); MEAN CORPUSCULAR HGB CONC 34.4 G/dL (31.0-37.0); MEAN CORPUSCULAR VOLUME 98 fL (80-100); MONOCYTES # (AUTO) 0.9 K/uL (0.1-1.0); NEUTROPHILS % (AUTO) 81.7 % (40.0-70.0); PLATELET COUNT (AUTO) 258 K/uL (150-450); RED BLOOD CELL COUNT(AUTO) 2.63 MIL/uL (4.50-5.90); RED CELL DISTRIBUTION WIDTH 14.6 % (11.5-14.5)
[2017-08-06 05:58] VITALS: BP 111/60
[2017-08-06] MEDS: CILOSTAZOL 100 MG TABLET PO SCH ×2 (06:20→17:39)
[2017-08-06 06:24] LABS: ALBUMIN 2.4 g/dL (3.4-5.0); BILIRUBIN,TOTAL 0.4 mg/dL (0.1-1.0); CALCIUM, TOTAL 8.5 mg/dL (8.8-10.5); CREATININE 2.1 mg/dL (0.60-1.30); PHOSPHORUS 2.9 mg/dL (2.5-4.9); POTASSIUM 3.5 mmol/L (3.5-5.1); TOTAL PROTEIN, SERUM 6.6 g/dL (6.4-8.2)
[2017-08-06] MEDS: HYDROCODONE/ACETAMINOPHEN 5-325 MG TABLET PO PRN ×2 (06:27→13:45)
[2017-08-06] MEDS: INSULIN ASPART 100 UNITS/ML SQ SCH ×3 (07:30→17:30)
[2017-08-06] MEDS: OXYGEN THERAPY IH SCH ×2 (08:00→20:22)
[2017-08-06 08:23] VITALS: BP 116/64
[2017-08-06] MEDS: METOPROLOL SUCCINATE 50 MG ER TABLET PO SCH (09:00)
[2017-08-06] MEDS: ISOSORB DINIT/HYDRALAZINE HCL 20-37.5 MG TABLET PO SCH ×2 (09:00→20:28)
[2017-08-06] MEDS: CHOLECALCIFEROL (VIT D3) 1,000 UNITS TABLET PO SCH (09:12)
[2017-08-06] MEDS: CLOPIDOGREL BISULFATE 75 MG TABLET PO SCH (09:13)
[2017-08-06] MEDS: DOCUSATE SODIUM 100 MG CAPSULE PO SCH ×2 (09:13→20:22)
[2017-08-06] MEDS: FLUTICASONE/VILANTEROL 100-25 MCG/INH INHALER [14] IH SCH (09:13)
[2017-08-06] MEDS: ATORVASTATIN CALCIUM 10 MG TABLET PO SCH (09:13)
[2017-08-06] MEDS: PANTOPRAZOLE SODIUM 40 MG/VIAL IVP SCH (09:13)
[2017-08-06] MEDS: AMIODARONE HCL 200 MG TABLET PO SCH (09:13)
[2017-08-06] MEDS: TIOTROPIUM BROMIDE 18 MCG/INH HANDIHALER [5] IH SCH (09:13)
[2017-08-06] MEDS: ALLOPURINOL 100 MG TABLET PO SCH (09:14)
[2017-08-06] MEDS: POVIDONE-IODINE 10% 120 ML SOLUTION TP SCH (09:14)
[2017-08-06] MEDS: LinaGLIPtin 5 MG TABLET PO SCH (09:25)
[2017-08-06] MEDS: EPOETIN ALFA 10,000 UNITS/ML VIAL SQ SCH (09:25)
[2017-08-06 11:24] VITALS: BP 109/58
[2017-08-06] MEDS: ALBUMIN HUMAN 25%-25GM/100ML 100 ML IV SCH ×3 (11:55→22:30)
[2017-08-06] MEDS: INSULIN ASPART 100 UNITS/ML SQ PRN (12:08)
[2017-08-06 12:54] LABS: GLUCOMETER DEV NAME(LOC) 5S 1M; GLUCOSE,POINT OF CARE 277 MG/DL (70-110)
[2017-08-06] MEDS: SOD FERRIC GLUC COMPLX/SUCROSE 125 MG in SODIUM CHLORIDE 0.9% 100 ML IV SCH (13:45)
[2017-08-06 16:18] LABS: GLUCOMETER DEV NAME(LOC) 5N 1N; GLUCOSE,POINT OF CARE 165 MG/DL (70-110)
[2017-08-06 16:18] LABS: GLUCOMETER DEV NAME(LOC) 5N 1N; GLUCOSE,POINT OF CARE 261 MG/DL (70-110)
[2017-08-06 16:31] VITALS: BP 87/50
[2017-08-06] MEDS: RIVAROXABAN 15 MG TABLET PO SCH (17:39)
[2017-08-06] MEDS: CefTRIAXone SODIUM 2 GM in DEXTROSE 5%-WATER 20 ML IV SCH (18:30)
[2017-08-06 19:53] VITALS: BP 114/54
[2017-08-06 22:48] LABS: GLUCOMETER DEV NAME(LOC) 5N 1N; GLUCOSE,POINT OF CARE 143 MG/DL (70-110)
[2017-08-06 22:48] LABS: GLUCOMETER DEV NAME(LOC) 5S 1M; GLUCOSE,POINT OF CARE 96 MG/DL (70-110)
[2017-08-07] VITALS (11 sets, daily range): BP systolic 122–149; BP diastolic 55–80
[2017-08-07] MEDS: ALBUTEROL SULFATE 2.5 MG/0.5 ML NEB SOLUTION NEB SCH ×4 (02:00→20:37)
[2017-08-07] MEDS: IPRATROPIUM BROMIDE 0.5 MG/2.5 ML NEB SOLUTION NEB SCH ×4 (02:00→20:37)
[2017-08-07] MEDS: ALBUMIN HUMAN 25%-25GM/100ML 100 ML IV SCH ×4 (04:26→22:42)
[2017-08-07] MEDS: CILOSTAZOL 100 MG TABLET PO SCH ×2 (06:30→17:30)
[2017-08-07 06:52] LABS: BASOPHILS % (AUTO) 0.6 % (0.0-2.0); EOSINOPHILS % (AUTO) 2.2 % (1.0-6.0); HEMATOCRIT 23.7 % (41-53); HEMOGLOBIN 8.2 g/dL (13.5-17.5); LYMPHOCYTES # (AUTO) 0.5 K/uL (1.0-4.8); LYMPHOCYTES % (AUTO) 5.5 % (22.0-44.0); MEAN CORPUSCULAR HEMOGLOBIN 34.3 pg (26.0-34.0); MEAN CORPUSCULAR HGB CONC 34.8 G/dL (31.0-37.0); MEAN CORPUSCULAR VOLUME 99 fL (80-100); MONOCYTES # (AUTO) 0.9 K/uL (0.1-1.0); MONOCYTES % (AUTO) 9.3 % (2.0-9.0); NEUTROPHILS # (AUTO) 8.1 K/uL (1.8-7.7); NEUTROPHILS % (AUTO) 82.4 % (40.0-70.0); PLATELET COUNT (AUTO) 252 K/uL (150-450); RED CELL DISTRIBUTION WIDTH 14.7 % (11.5-14.5)
[2017-08-07 07:10] LABS: ALBUMIN 3.7 g/dL (3.4-5.0); BILIRUBIN,TOTAL 0.6 mg/dL (0.1-1.0); CALCIUM, TOTAL 8.8 mg/dL (8.8-10.5); CREATININE 1.62 mg/dL (0.60-1.30); MAGNESIUM 2.2 mg/dL (1.80-2.40); PHOSPHORUS 2.7 mg/dL (2.5-4.9); POTASSIUM 3.6 mmol/L (3.5-5.1)
[2017-08-07] MEDS: INSULIN ASPART 100 UNITS/ML SQ SCH ×3 (07:30→18:06)
[2017-08-07] MEDS ORDERED: SODIUM CHLORIDE 0.9% 1,000 ML IV ONE (08:00)
[2017-08-07 08:03] LABS: GLUCOMETER DEV NAME(LOC) 5N 1N; GLUCOSE,POINT OF CARE 161 MG/DL (70-110)
[2017-08-07] MEDS: OXYGEN THERAPY IH SCH ×2 (08:17→20:37)
[2017-08-07] MEDS: TIOTROPIUM BROMIDE 18 MCG/INH HANDIHALER [5] IH SCH (08:19)
[2017-08-07] MEDS: FLUTICASONE/VILANTEROL 100-25 MCG/INH INHALER [14] IH SCH (08:19)
[2017-08-07] MEDS: PANTOPRAZOLE SODIUM 40 MG/VIAL IVP SCH (08:20)
[2017-08-07] MEDS: DOCUSATE SODIUM 100 MG CAPSULE PO SCH ×2 (08:20→20:51)
[2017-08-07] MEDS: CHOLECALCIFEROL (VIT D3) 1,000 UNITS TABLET PO SCH (08:20)
[2017-08-07] MEDS: ALLOPURINOL 100 MG TABLET PO SCH (08:21)
[2017-08-07] MEDS: ATORVASTATIN CALCIUM 10 MG TABLET PO SCH (08:22)
[2017-08-07] MEDS: CLOPIDOGREL BISULFATE 75 MG TABLET PO SCH (08:23)
[2017-08-07] MEDS: ISOSORB DINIT/HYDRALAZINE HCL 20-37.5 MG TABLET PO SCH ×2 (08:24→20:51)
[2017-08-07] MEDS: AMIODARONE HCL 200 MG TABLET PO SCH (08:25)
[2017-08-07] MEDS: METOPROLOL SUCCINATE 50 MG ER TABLET PO SCH (08:25)
[2017-08-07] MEDS: POVIDONE-IODINE 10% 120 ML SOLUTION TP SCH (08:27)
[2017-08-07] MEDS: LinaGLIPtin 5 MG TABLET PO SCH (09:00)
[2017-08-07] MEDS: INSULIN DETEMIR 100 UNITS/ML SQ SCH (09:00)
[2017-08-07] MEDS ORDERED: SODIUM BICARBONATE 50 MEQ/50 ML VIAL ONE (11:34)
[2017-08-07] MEDS ORDERED: IOHEXOL 300 MG/ML 100 ML VIAL ONE (11:34)
[2017-08-07] MEDS ORDERED: LIDOCAINE HCL/PF 1% 30 ML VIAL ONE (11:34)
[2017-08-07] MEDS ORDERED: IOHEXOL 300 MG/ML 50 ML VIAL ONE (11:47)
[2017-08-07] MEDS ORDERED: FentaNYL CITRATE-PF 100 MCG/2 ML VIAL ONE (11:48)
[2017-08-07] MEDS ORDERED: MIDAZOLAM HCL 2 MG/2 ML VIAL ONE (11:48)
[2017-08-07] MEDS ORDERED: HEPARIN SODIUM 1000 UNITS/NS 500 ML ONE (11:49)
[2017-08-07] MEDS ORDERED: HEPARIN SODIUM 1000 UNITS/NS 1,000 ML IARTER ONE (12:08)
[2017-08-07] MEDS ORDERED: SODIUM CHLORIDE 0.9% 500 ML IV ONE (12:08)
[2017-08-07] MEDS ORDERED: MIDAZOLAM HCL 2 MG/2 ML VIAL IVP ONE (12:15)
[2017-08-07] MEDS ORDERED: IOHEXOL 300 MG/ML 50 ML VIAL IARTER ONE (12:15)
[2017-08-07] MEDS ORDERED: FentaNYL CITRATE-PF 100 MCG/2 ML VIAL IVP ONE (12:15)
[2017-08-07] MEDS ORDERED: LIDOCAINE 1% 30 ML/SOD BICARB 8.4% 4 ML SQ ONE (12:15)
[2017-08-07] MEDS: SOD FERRIC GLUC COMPLX/SUCROSE 125 MG in SODIUM CHLORIDE 0.9% 100 ML IV SCH (13:59)
[2017-08-07] MEDS: RIVAROXABAN 15 MG TABLET PO SCH (18:00)
[2017-08-07] MEDS: CefTRIAXone SODIUM 2 GM in DEXTROSE 5%-WATER 20 ML IV SCH (18:00)
[2017-08-07] MEDS: INSULIN ASPART 100 UNITS/ML SQ PRN (18:08)
[2017-08-07 19:48] LABS: GLUCOMETER DEV NAME(LOC) 5N 1N; GLUCOSE,POINT OF CARE 203 MG/DL (70-110)
[2017-08-07 22:58] LABS: GLUCOMETER DEV NAME(LOC) 5N 1N; GLUCOSE,POINT OF CARE 108 MG/DL (70-110)
[2017-08-08] MEDS: IPRATROPIUM BROMIDE 0.5 MG/2.5 ML NEB SOLUTION NEB SCH ×4 (01:53→19:35)
[2017-08-08] MEDS: ALBUTEROL SULFATE 2.5 MG/0.5 ML NEB SOLUTION NEB SCH ×4 (01:53→19:36)
[2017-08-08] MEDS ORDERED: SODIUM CHLORIDE 0.9% 250 ML IV ONE ×2 (03:53→09:29)
[2017-08-08] MEDS: ALBUMIN HUMAN 25%-25GM/100ML 100 ML IV SCH ×4 (04:04→22:40)
[2017-08-08] MEDS: ALBUTEROL SULFATE 2.5 MG/0.5 ML NEB SOLUTION NEB PRN ×4 (04:30→23:10)
[2017-08-08] MEDS: IPRATROPIUM BROMIDE 0.5 MG/2.5 ML NEB SOLUTION NEB PRN ×4 (04:30→23:10)
[2017-08-08 05:46] VITALS: BP 132/78
[2017-08-08] MEDS: CILOSTAZOL 100 MG TABLET PO SCH (05:49)
[2017-08-08] MEDS: INSULIN ASPART 100 UNITS/ML SQ SCH ×3 (07:30→18:24)
[2017-08-08 07:48] VITALS: BP 132/64
[2017-08-08] MEDS: OXYGEN THERAPY IH SCH ×2 (08:00→20:07)
[2017-08-08 08:42] LABS: GLUCOMETER DEV NAME(LOC) 5S 1M; GLUCOSE,POINT OF CARE 155 MG/DL (70-110)
[2017-08-08] MEDS: TIOTROPIUM BROMIDE 18 MCG/INH HANDIHALER [5] IH SCH (08:57)
[2017-08-08] MEDS: FLUTICASONE/VILANTEROL 100-25 MCG/INH INHALER [14] IH SCH (08:57)
[2017-08-08] MEDS: PANTOPRAZOLE SODIUM 40 MG/VIAL IVP SCH (08:58)
[2017-08-08] MEDS: ATORVASTATIN CALCIUM 10 MG TABLET PO SCH (08:59)
[2017-08-08] MEDS: DOCUSATE SODIUM 100 MG CAPSULE PO SCH ×2 (08:59→20:05)
[2017-08-08] MEDS: ISOSORB DINIT/HYDRALAZINE HCL 20-37.5 MG TABLET PO SCH ×2 (08:59→20:05)
[2017-08-08] MEDS: AMIODARONE HCL 200 MG TABLET PO SCH (08:59)
[2017-08-08] MEDS: CLOPIDOGREL BISULFATE 75 MG TABLET PO SCH (08:59)
[2017-08-08] MEDS: CHOLECALCIFEROL (VIT D3) 1,000 UNITS TABLET PO SCH (09:00)
[2017-08-08] MEDS: EPOETIN ALFA 10,000 UNITS/ML VIAL SQ SCH (09:00)
[2017-08-08] MEDS: METOPROLOL SUCCINATE 50 MG ER TABLET PO SCH (09:00)
[2017-08-08] MEDS: INSULIN DETEMIR 100 UNITS/ML SQ SCH (09:00)
[2017-08-08] MEDS: ALLOPURINOL 100 MG TABLET PO SCH (09:00)
[2017-08-08] MEDS: POVIDONE-IODINE 10% 120 ML SOLUTION TP SCH (09:09)
[2017-08-08] MEDS: LinaGLIPtin 5 MG TABLET PO SCH (09:35)
[2017-08-08 11:02] LABS: BASOPHILS % (AUTO) 0.4 % (0.0-2.0); EOSINOPHILS % (AUTO) 0.6 % (1.0-6.0); HEMATOCRIT 21.6 % (41-53); HEMOGLOBIN 7.3 g/dL (13.5-17.5); LYMPHOCYTES # (AUTO) 0.4 K/uL (1.0-4.8); LYMPHOCYTES % (AUTO) 3.6 % (22.0-44.0); MEAN CORPUSCULAR HEMOGLOBIN 33.7 pg (26.0-34.0); MEAN CORPUSCULAR HGB CONC 33.9 G/dL (31.0-37.0); MEAN CORPUSCULAR VOLUME 100 fL (80-100); MONOCYTES # (AUTO) 0.8 K/uL (0.1-1.0); MONOCYTES % (AUTO) 7.8 % (2.0-9.0); NEUTROPHILS # (AUTO) 9.4 K/uL (1.8-7.7); PLATELET COUNT (AUTO) 255 K/uL (150-450); RED BLOOD CELL COUNT(AUTO) 2.17 MIL/uL (4.50-5.90); RED CELL DISTRIBUTION WIDTH 14.9 % (11.5-14.5)
[2017-08-08 11:03] LABS: NEUTROPHILS % (AUTO) 87.6 % (40.0-70.0)
[2017-08-08 11:25] LABS: BILIRUBIN,TOTAL 0.8 mg/dL (0.1-1.0); CALCIUM, TOTAL 8.6 mg/dL (8.8-10.5); CREATININE 1.44 mg/dL (0.60-1.30); MAGNESIUM 2.2 mg/dL (1.80-2.40); POTASSIUM 3.7 mmol/L (3.5-5.1)
[2017-08-08 11:40] VITALS: BP 119/65
[2017-08-08] MEDS: INSULIN ASPART 100 UNITS/ML SQ PRN ×2 (12:30→18:24)
[2017-08-08] MEDS: ACETYLCYSTEINE 20% 200 MG/ML 4 ML ORAL SOLUTION PO SCH ×2 (12:31→20:05)
[2017-08-08] MEDS: SOD FERRIC GLUC COMPLX/SUCROSE 125 MG in SODIUM CHLORIDE 0.9% 100 ML IV SCH (12:32)
[2017-08-08 13:48] LABS: GLUCOMETER DEV NAME(LOC) 5N 1N; GLUCOSE,POINT OF CARE 209 MG/DL (70-110)
[2017-08-08 15:58] VITALS: BP 120/65
[2017-08-08] MEDS: RIVAROXABAN 15 MG TABLET PO SCH (18:23)
[2017-08-08] MEDS: CefTRIAXone SODIUM 2 GM in DEXTROSE 5%-WATER 20 ML IV SCH (18:27)
[2017-08-08 19:34] VITALS: BP 125/75
[2017-08-08 19:53] LABS: GLUCOMETER DEV NAME(LOC) 5N 1N; GLUCOSE,POINT OF CARE 178 MG/DL (70-110)
[2017-08-08] MEDS ORDERED: ROSUVASTATIN CALCIUM 20 MG TABLET PO SCH (21:00)
[2017-08-08 23:40] VITALS: BP 126/71
[2017-08-09] MEDS: IPRATROPIUM BROMIDE 0.5 MG/2.5 ML NEB SOLUTION NEB SCH ×3 (02:28→15:08)
[2017-08-09] MEDS: ALBUTEROL SULFATE 2.5 MG/0.5 ML NEB SOLUTION NEB SCH ×3 (02:28→15:08)
[2017-08-09] MEDS: ALBUMIN HUMAN 25%-25GM/100ML 100 ML IV SCH (03:46)
[2017-08-09 04:13] LABS: GLUCOMETER DEV NAME(LOC) 5S 1M; GLUCOSE,POINT OF CARE 164 MG/DL (70-110)
[2017-08-09 04:45] VITALS: BP 117/59
[2017-08-09 05:58] LABS: BASOPHILS % (AUTO) 0.5 % (0.0-2.0); EOSINOPHILS % (AUTO) 0.7 % (1.0-6.0); HEMATOCRIT 23.1 % (41-53); HEMOGLOBIN 7.9 g/dL (13.5-17.5); LYMPHOCYTES # (AUTO) 0.6 K/uL (1.0-4.8); LYMPHOCYTES % (AUTO) 4.9 % (22.0-44.0); MEAN CORPUSCULAR VOLUME 100 fL (80-100); MONOCYTES % (AUTO) 8.2 % (2.0-9.0); NEUTROPHILS # (AUTO) 10.6 K/uL (1.8-7.7); PLATELET COUNT (AUTO) 269 K/uL (150-450); RED BLOOD CELL COUNT(AUTO) 2.31 MIL/uL (4.50-5.90); RED CELL DISTRIBUTION WIDTH 15.1 % (11.5-14.5)
[2017-08-09 06:20] LABS: ALBUMIN 4.5 g/dL (3.4-5.0); BILIRUBIN,TOTAL 0.8 mg/dL (0.1-1.0); CALCIUM, TOTAL 9.1 mg/dL (8.8-10.5); CREATININE 1.54 mg/dL (0.60-1.30); MAGNESIUM 2.3 mg/dL (1.80-2.40); POTASSIUM 3.6 mmol/L (3.5-5.1); TOTAL PROTEIN, SERUM 7.4 g/dL (6.4-8.2)
[2017-08-09 06:22] LABS: NEUTROPHILS % (AUTO) 85.7 % (40.0-70.0)
[2017-08-09 07:32] VITALS: BP 124/66
[2017-08-09] MEDS: INSULIN ASPART 100 UNITS/ML SQ SCH ×2 (08:03→12:15)
[2017-08-09] MEDS: CLOPIDOGREL BISULFATE 75 MG TABLET PO SCH (08:15)
[2017-08-09] MEDS: METOPROLOL SUCCINATE 50 MG ER TABLET PO SCH (08:15)
[2017-08-09] MEDS: AMIODARONE HCL 200 MG TABLET PO SCH ×2 (08:15→10:49)
[2017-08-09] MEDS: PANTOPRAZOLE SODIUM 40 MG/VIAL IVP SCH (08:15)
[2017-08-09] MEDS: DOCUSATE SODIUM 100 MG CAPSULE PO SCH (08:15)
[2017-08-09] MEDS: CHOLECALCIFEROL (VIT D3) 1,000 UNITS TABLET PO SCH (08:15)
[2017-08-09] MEDS: ISOSORB DINIT/HYDRALAZINE HCL 20-37.5 MG TABLET PO SCH (08:15)
[2017-08-09] MEDS: LinaGLIPtin 5 MG TABLET PO SCH (08:16)
[2017-08-09] MEDS: ALLOPURINOL 100 MG TABLET PO SCH (08:16)
[2017-08-09] MEDS: OXYGEN THERAPY IH SCH (08:26)
[2017-08-09 08:57] LABS: GLUCOMETER DEV NAME(LOC) 5N 1N; GLUCOSE,POINT OF CARE 168 MG/DL (70-110)
[2017-08-09] MEDS: POVIDONE-IODINE 10% 120 ML SOLUTION TP SCH (09:09)
[2017-08-09] MEDS ORDERED: BUMETANIDE 1 MG TABLET PO SCH (09:15)
[2017-08-09] MEDS: FLUTICASONE/VILANTEROL 100-25 MCG/INH INHALER [14] IH SCH (10:32)
[2017-08-09] MEDS: TIOTROPIUM BROMIDE 18 MCG/INH HANDIHALER [5] IH SCH (10:32)
[2017-08-09] MEDS: INSULIN DETEMIR 100 UNITS/ML SQ SCH (10:38)
[2017-08-09 10:53] VITALS: BP 105/62
[2017-08-09] MEDS: ALBUTEROL SULFATE 2.5 MG/0.5 ML NEB SOLUTION NEB PRN (11:27)
[2017-08-09] MEDS: IPRATROPIUM BROMIDE 0.5 MG/2.5 ML NEB SOLUTION NEB PRN (11:27)
[2017-08-09] MEDS: SOD FERRIC GLUC COMPLX/SUCROSE 125 MG in SODIUM CHLORIDE 0.9% 100 ML IV SCH (12:13)
[2017-08-09 15:30] VITALS: BP 131/80
[2017-08-09] MEDS: CefTRIAXone SODIUM 2 GM in DEXTROSE 5%-WATER 20 ML IV SCH (17:45)
[2017-08-09 19:38] LABS: GLUCOMETER DEV NAME(LOC) 5S 1M; GLUCOSE,POINT OF CARE 131 MG/DL (70-110)
[2017-08-10 00:53] LABS: GLUCOMETER DEV NAME(LOC) 5N 1N; GLUCOSE,POINT OF CARE 204 MG/DL (70-110)
[2017-08-10 00:58] LABS: GLUCOMETER DEV NAME(LOC) 5N 1N; GLUCOSE,POINT OF CARE 164 MG/DL (70-110)
== END 2017-08-09 18:10 | DRG 255 ==
LOC: EMS 22:45 → 5S 07-26 05:47
PROVIDERS: ADMIT Internal Medicine; ATTEND Internal Medicine
PROC: 0Y6X0Z0 Detachment at Right 5th Toe, Complete, Open Approach (ICD-10-PCS; 2017-08-01)
PROC: 0Y6V0Z0 Detachment at Right 4th Toe, Complete, Open Approach (ICD-10-PCS; 2017-08-01)
PROC: 0Y6T0Z0 Detachment at Right 3rd Toe, Complete, Open Approach (ICD-10-PCS; 2017-08-01)
PROC: 0Y6R0Z0 Detachment at Right 2nd Toe, Complete, Open Approach (ICD-10-PCS; 2017-08-01)
PROC: 0Y6P0Z0 Detachment at Right 1st Toe, Complete, Open Approach (ICD-10-PCS; principal; 2017-08-01 07:45)
DX: E11.52 Type 2 diabetes mellitus with diabetic peripheral angiopathy with gangrene (principal); N18.6 End stage renal disease; I13.2 Hypertensive heart and chronic kidney disease with heart failure and with stage 5 chronic kidney disease, or end stage renal disease; I96 Gangrene, not elsewhere classified; E11.22 Type 2 diabetes mellitus with diabetic chronic kidney disease; N18.4 Chronic kidney disease, stage 4 (severe); I13.0 Hypertensive heart and chronic kidney disease with heart failure and stage 1 through stage 4 chronic kidney disease, or unspecified chronic kidney disease; E11.40 Type 2 diabetes mellitus with diabetic neuropathy, unspecified; I50.42 Chronic combined systolic (congestive) and diastolic (congestive) heart failure; E11.649 Type 2 diabetes mellitus with hypoglycemia without coma; E87.5 Hyperkalemia; I25.5 Ischemic cardiomyopathy; I25.10 Atherosclerotic heart disease of native coronary artery without angina pectoris; I48.2 Chronic atrial fibrillation; J45.909 Unspecified asthma, uncomplicated; J44.9 Chronic obstructive pulmonary disease, unspecified; B96.89 Other specified bacterial agents as the cause of diseases classified elsewhere; E78.5 Hyperlipidemia, unspecified; D63.8 Anemia in other chronic diseases classified elsewhere; Z98.61 Coronary angioplasty status; Z95.0 Presence of cardiac pacemaker; Z83.3 Family history of diabetes mellitus; Z79.4 Long term (current) use of insulin; Z82.49 Family history of ischemic heart disease and other diseases of the circulatory system; Z79.01 Long term (current) use of anticoagulants; Z79.02 Long term (current) use of antithrombotics/antiplatelets
CPT/HCPCS: 36200; 75630; 75716; 76770; 82575; 82962; 83036; 83540; 83550; 83735; 84100; 84156; 84166; 85651; 86140; 87015; 87070; 87205; 88305; 93005; 93925; 94640; 94644; 96361; 96374; 97110; 97162; 97530; 99285; C9113; J0696; J0713; J0885; J1644; J1815; J2250; J2370; J2704; J2916; J3010; J3370; J3490; J7030; J7040; J7050; J7060; P9046; Q9967